=== PATIENT | female | born 1945 | race Caucasian/White ===

== ENCOUNTER 2017-12-13 18:45 | Emergency (ER) | payer MEDICARE, OTHER ==
--- NOTE | 2017-12-13 19:53 | RAD ---
3 VIEWS LEFT FOOT: Date: 12/13/17 HISTORY: Diabetic foot ulcer to lateral left foot. FINDINGS: There is subcutaneous soft tissue swelling adjacent to the metacarpophalangeal joint of the left smal l toe. No underlying osseous destruction is seen to suggest osteomyelitis based on this examination. There is irregularity of the soft tissues in this region, likely related to patient's wound/ulceratio n. There is diffuse osteopenia. Degenerative changes are seen involving the tarsal bones and tarsometata rsal joints. There is metatarsus prima varus and hallux valgus. Mild osteoarthritis seen first metata rsophalangeal joint. There is diffuse osteopenia noted. IMPRESSION: 1. Soft tissue swelling and irregularity just lateral to the metatarsophalangeal joint of the small toe, likely related to patient's known wound. There is no underlying osseous destruction to suggest o steomyelitis based on radiographic evaluation. However, if there is clinical concern for osteomyeliti s, MRI is suggested for further evaluation. 2. Degenerative changes and osteopenia. POS: [facility]
== END 2017-12-13 20:16 | disposition home or self-care (01) ==
LOC: SCSER 18:45
DX: L84 Corns and callosities (principal); E03.9 Hypothyroidism, unspecified; E11.9 Type 2 diabetes mellitus without complications; Z79.899 Other long term (current) drug therapy; Z79.82 Long term (current) use of aspirin; Z79.84 Long term (current) use of oral hypoglycemic drugs

== ENCOUNTER 2017-12-22 10:50 | Outpatient (CLI) | payer MEDICARE, OTHER | END 2017-12-22 10:51 | disposition home or self-care (01) | LOC: BICMAMMO 10:50 | PROVIDERS: ATTEND Specialist | DX: Z12.31 Encounter for screening mammogram for malignant neoplasm of breast (principal) | CPT/HCPCS: 77063; 77067 ==

== ENCOUNTER 2018-01-04 10:11 | Outpatient (CLI) | payer MEDICARE, OTHER ==
[2018-01-04] MEDS ORDERED: Sodium Chloride 0.9% 15 ML NEB ONE (14:57)
--- NOTE | 2018-01-04 22:58 | HP ---
DATE OF SERVICE: 01/04/2018 HISTORY OF PRESENT ILLNESS: Ms. Geneva Damico is a very pleasant 72-year-old who presents to the [facility] for evaluation of a wound of the plantar surface of the left lateral forefoot. The patien t states that approximately 1 year ago, she was seen by Dr. Lalo Huertas for a "corn" of the plantar surface of the left lateral forefoot. The patient states that she was placed on prescription medica tions with no improvement of the lesion of her left foot. The patient states that 2 weeks ago becaus e of pain associated with the lesion of the plantar surface of the left lateral forefoot, she was see n in the [facility] Emergency Department at a followup visit with Dr. Walters of Orthopedic Surgery, the wound of her left foot was debrided. At this time, the patient was referred to the [facility] for further evaluation and treatment. The patient states she has been cleansing the wound o f her left foot with hydrogen peroxide. She states that she then applies Triple Antibiotic Ointment to the wound followed by a Band-Aid. She states that her left foot wound has markedly improved in it s appearance since debridement by Dr. Walters. PAST MEDICAL HISTORY: 1. Arthritis. 2. Hypothyroidism. 3. Restless leg syndrome. 4. Osteoporosis. 5. Gastroesophageal reflux disease. 6. Diabetes mellitus type 2. PAST SURGICAL HISTORY: 1. x2. 2. Ovarian surgery. 3. Breast surgery x4 followed by bilateral partial mastectomy with breast implants. 4. Breast implant revision. 5. No surgery x2. 6. Cholecystectomy. 7. Hysterectomy. 8. I and D of abscess of right forearm. 9. Laminectomy L4-S1 in 02/03. 10. Tonsillectomy. MEDICATIONS: 1. Januvia. 2. Levothyroxine. 3. Metformin. 4. Ropinirole. 5. Gabapentin. 6. Simvastatin. 7. Invokana. 8. Vitamin D3. 9. Aspirin 81 mg. ALLERGIES: HYDROCODONE, LATEX. SOCIAL HISTORY: Negative for tobacco or EtOH use. FAMILY HISTORY: Significant for diabetes mellitus. The patient states that her mother was diagnosed with diabetes mellitus. REVIEW OF SYSTEMS: The patient states that she also receives Prolia injections every 6 months. PHYSICAL EXAMINATION: VITAL SIGNS: Temperature 97.7, pulse 83, respirations 19, blood pressure 128/64. Accu-Chek 200. GENERAL: A 72-year-old female sitting on table in examination room, in no acute distress. HEENT: Normocephalic, atraumatic. NECK: No nuchal rigidity. CHEST: Clear to auscultation. CARDIOVASCULAR: Regular rate and rhythm. ABDOMEN: Soft. EXTREMITIES: No open wound of the left lateral plantar forefoot is present. Callus is present over the plantar surface of the left lateral forefoot. No cellulitis of the left foot is present. No mac eration of the skin of the left foot is present. No significant edema of the left foot is present on exam today. NEUROLOGIC: Grossly nonfocal. ASSESSMENT AND PLAN: 1. Callus of the plantar surface of left lateral forefoot. The patient has been reassured that no o pen wound is present. The patient states she has a followup appointment with Dr. Walters tomorrow. Th e patient will return to the [facility] Center as needed after her evaluation by Orthopedic Surgery. The patient understands and is in agreement with the preceding treatment plan. 2. Arthritis. 3. Hypothyroidism. 4. Restless leg syndrome. 5. Osteoporosis. 6. Gastroesophageal reflux disease. 7. Diabetes mellitus type 2. The patient's Accu-Chek in clinic today is 200.
== END 2018-01-04 10:12 | disposition home or self-care (01) ==
LOC: WCC 10:11
PROVIDERS: ATTEND Family Medicine
DX: L84 Corns and callosities (principal); E11.9 Type 2 diabetes mellitus without complications; E03.9 Hypothyroidism, unspecified; M19.90 Unspecified osteoarthritis, unspecified site; M81.0 Age-related osteoporosis without current pathological fracture; K21.9 Gastro-esophageal reflux disease without esophagitis; G25.81 Restless legs syndrome
CPT/HCPCS: 97139; 97602; G0463; 99204; A4218

== ENCOUNTER 2018-09-24 21:53 | Emergency (ER) | payer MEDICARE ==
[2018-09-24 23:14] LABS: #Eosinphils 0.2 thou/uL (0.0-0.7); #Lymphocytes 1.2 thou/uL (1.20-3.40); #Monocytes 0.6 thou/uL (0.11-0.59); #Neutrophils 7.9 thou/uL (1.40-6.50); %Basophils 0.4 % (0.0-1.0); %Eosinophils 1.5 % (0.0-10.0); %Lymphocytes 12.4 % (21.0-51.0); %Monocytes 5.9 % (0.0-10.0); %Neutrophils 79.8 % (42.0-75.0); Hemoglobin 14.3 g/dL (12.0-16.0); Mean Corpuscular HGB CONC 34.1 g/dL (32.0-36.0); Mean Corpuscular Hemoglobin 31.7 pg (27.0-31.0); Mean Corpuscular Volume 92.9 fL (78.0-98.0); Mean Platelet Volume 8.6 fL (7.4-10.4); Platelet Count 207 thou/uL (130-400); RBC Distribution Width 11.2 % (11.5-14.5); White Blood Cell (WBC) Count 9.9 thou/uL (4.8-10.8)
[2018-09-24 23:35] LABS: ALT (SGPT) 13 U/L (8-55); AST (SGOT) 13 U/L (5-34); Albumin 3.9 g/dL (3.4-4.8); Alkaline Phosphatase 157 U/L (40-150); Anion Gap 14 mmol/L (10-20); BUN (Urea Nitrogen) 19 mg/dL (9.8-20.1); Bilirubin, Total 0.5 mg/dL (0.2-1.2); Calc. Creatinine Clearance 0 mL/min (70-130); Calcium 9.5 mg/dL (7.8-10.44); Carbon Dioxide 25 mmol/L (23-31); Chloride 99 mmol/L (98-107); Estimated GFR-MDRD 54; Globulin 3.4 g/dL (2.4-3.5); Glucose 497 mg/dL (83-110); Potassium 4.4 mmol/L (3.5-5.1); Protein, Total 7.3 g/dL (6.0-8.3); Sodium 134 mmol/L (136-145)
[2018-09-24] MEDS ORDERED: Morphine 4 MG/ML VIAL ONE (23:37)
[2018-09-24] MEDS ORDERED: Ondansetron PF 4 MG/2 ML Vial ONE (23:38)
[2018-09-24] MEDS ORDERED: Piperacillin/Tazobactam 4.5 GM VIAL ONE (23:38)
[2018-09-24] MEDS ORDERED: Clindamycin/D5W 900 mg/50 ml Premix Bag ONE (23:59)
[2018-09-24] MEDS ORDERED: Nystatin Cream 15 GM TUBE TOP PRN (23:59)
== END 2018-09-25 02:24 | disposition home or self-care (01) ==
LOC: ERS 21:53
DX: N76.0 Acute vaginitis (principal); N76.2 Acute vulvitis; E11.9 Type 2 diabetes mellitus without complications; M19.90 Unspecified osteoarthritis, unspecified site; Z79.82 Long term (current) use of aspirin; Z79.899 Other long term (current) drug therapy
CPT/HCPCS: 36415; 80053; 83605; 85025; 87040; 87070; 87077; 87186; 87205; 87480; 87510; 87660; 96365; 96366; 96367; 96368; 96375; J2270; J2405; J2543; J3370; J3490

== ENCOUNTER 2018-12-20 14:16 | Outpatient (CLI) | payer MEDICARE ==
--- NOTE | 2018-12-20 15:09 | BD ---
FEXAM: DEXA bone density examination HISTORY: 73-year-old postmenopausal female for screening COMPARISON: DEXA 2014 FINDINGS: L1--bone mineral density 0.967 g/sq cm; T score -0.2 L2--bone mineral density 0.914 g/sq cm; T score -1.0 L3--bone mineral density 1.087 g/sq cm; T score 0.0 L4--bone mineral density 1.017 g/sq cm; T score -0.4 Total L1-L4--bone mineral density 1.001 g/sq cm; T score -0.4 Left femoral neck--bone mineral density0.64; T score 0.9 Total proximal left femur--bone mineral density 0.765; T score 1.5 IMPRESSION: Osteopenia of the left femoral neck and total left hip. Normal bone mineral density of th e lumbar spine. There is statistically significant decrease in bone mineral density from the comparis on examination of the lumbar spine, and femoral neck.
== END 2018-12-20 14:17 | disposition home or self-care (01) ==
LOC: BICMAMMO 14:16
PROVIDERS: ATTEND Internal Medicine Rheumatology
DX: M81.0 Age-related osteoporosis without current pathological fracture (principal); M85.852 Other specified disorders of bone density and structure, left thigh
CPT/HCPCS: 77080

== ENCOUNTER 2019-02-08 14:07 | Outpatient (CLI) | payer MEDICARE ==
--- NOTE | 2019-02-08 15:20 | RAD ---
FOUR VIEWS CERVICAL SPINE: 02/08/19 HISTORY: Cervical radiculopathy with symptoms on the right for one month. Radicular arm pain on the right. COMPARISON: Study in 2006. FINDINGS: C1 to C7 is seen on the lateral projection. The C7 vertebral body is obscured and subluxation of the cervicothoracic junction would be difficult to exclude on this exam. Degenerative changes are seen i n the lower cervical spine which have progressed when compared to the prior study with narrowing of t he intervertebral disc spaces and end plate degenerative changes at C5-6 and C6-7 levels. There is tr silvano anterolisthesis of C4 on C5 and C5 on C6 which is stable compared to the prior exam and likely re lated to the facet degenerative changes. Vertebral body heights are within normal limits and no frac ture or subluxation seen from C1 to C7. Prevertebral soft tissues are within normal limits. Vascular calcifications overlie the right neck. Vascular calcification seen in the aortic arch. IMPRESSION: Degenerative changes in the cervical spine with trace anterolisthesis of C4 on C5 and C5 on C6. Cerv icothoracic junction is not well visualized on this exam. POS: [facility]
== END 2019-02-08 14:08 | disposition home or self-care (01) ==
LOC: BICRAD 14:07
PROVIDERS: ATTEND Specialist
DX: M47.22 Other spondylosis with radiculopathy, cervical region (principal)
CPT/HCPCS: 72040

== ENCOUNTER 2019-06-20 14:22 | Inpatient (IN) | payer MEDICARE ==
[2019-06-20 15:03] LABS: #Eosinphils 0.2 thou/uL (0.0-0.7); #Lymphocytes 1.3 thou/uL (1.20-3.40); #Monocytes 0.5 thou/uL (0.11-0.59); #Neutrophils 5.2 thou/uL (1.40-6.50); %Basophils 0.5 % (0.0-1.0); %Eosinophils 2.7 % (0.0-10.0); %Lymphocytes 18.5 % (21.0-51.0); %Monocytes 6.4 % (0.0-10.0); Hemoglobin 14.3 g/dL (12.0-16.0); Mean Corpuscular HGB CONC 34.2 g/dL (32.0-36.0); Mean Corpuscular Hemoglobin 32.2 pg (27.0-31.0); Mean Corpuscular Volume 94.2 fL (78.0-98.0); Mean Platelet Volume 8.1 fL (7.4-10.4); Platelet Count 249 thou/uL (130-400); RBC Distribution Width 11.3 % (11.5-14.5); Red Blood Cell (RBC) Count 4.45 mill/uL (4.20-5.40); White Blood Cell (WBC) Count 7.2 thou/uL (4.8-10.8)
[2019-06-20 15:25] LABS: ALT (SGPT) 13 U/L (8-55); AST (SGOT) 17 U/L (5-34); Albumin 3.9 g/dL (3.4-4.8); Alkaline Phosphatase 137 U/L (40-110); Anion Gap 13 mmol/L (10-20); BUN (Urea Nitrogen) 19 mg/dL (9.8-20.1); Bilirubin, Total 0.3 mg/dL (0.2-1.2); Calc. Creatinine Clearance 0 mL/min (70-130); Calcium 9.2 mg/dL (7.8-10.44); Carbon Dioxide 23 mmol/L (23-31); Chloride 102 mmol/L (98-107); Estimated GFR-MDRD 60; Globulin 3.1 g/dL (2.4-3.5); Glucose 439 mg/dL (83-110); Potassium 4.2 mmol/L (3.5-5.1); Sodium 134 mmol/L (136-145)
--- NOTE | 2019-06-20 15:30 | RAD ---
XR Foot Lt 3 View STANDARD: 06/20/2019 2:34 PM CLINICAL INDICATION: Foot ulcer COMPARISON: 12/13/2017 FINDINGS: Fracture:No fracture. Arthropathy:Stable degenerative change of the left foot. There is osseous demineralization. Marked soft tissue prominence of the lateral left forefoot, which has progressed. There is focal skin surface lucency and irregularity related to ulceration. No underlying radiopaque foreign body is seen IMPRESSION: Marked, progressive soft tissue thickening of the lateral left forefoot with overlying skin ulceratio n. No acute osseous abnormality is seen.
[2019-06-20] MEDS ORDERED: Insulin Regular 300 UNITS/3 ML VIAL ONE (15:51)
[2019-06-20] MEDS ORDERED: Clindamycin/D5W 600 mg/50 ml Premix Bag ONE (17:18)
[2019-06-20] MEDS ORDERED: Dextrose 5% in Water 1,000 ML IV PRN (18:05)
[2019-06-20] MEDS ORDERED: HumaLOG 300 UNITS/3 ML VIAL SC PRN (18:05)
[2019-06-20] MEDS ORDERED: Dextrose 50% Abboject 50 ML SYRINGE IVP PRN (18:05)
[2019-06-20 18:07] LABS: Bilirubin Negative (Negative); Blood, Urine Negative (Negative); Clarity Clear (Clear); Glucose, Urine (Dipstick) Greater than 1000 mg/dL (Negative); Leukocyte Negative Leu/uL (Negative); Nitrite Negative (Negative); Protein, Urine (Dipstick) Negative (Neg-Trace); Urobilinogen Normal mg/dL (Less than 2)
[2019-06-20 18:25] VITALS: BMI 22.1
[2019-06-20] MEDS ORDERED: Vancomycin HCl 1.5 GM in Sodium Chloride 0.9% 250 ML 300 ML IVPB SCH (21:00)
[2019-06-20] MEDS: Cefepime 2 GM in Sodium Chloride 0.9% 100 ML IVPB SCH (21:12)
[2019-06-20] MEDS ORDERED: Atorvastatin Calcium 20 MG TAB PO SCH (23:00)
[2019-06-20] MEDS ORDERED: Melatonin 3 MG TAB PO SCH (23:00)
[2019-06-20] MEDS ORDERED: rOPINIRole HCl 0.5 MG TAB PO SCH (23:00)
[2019-06-20] MEDS ORDERED: Gabapentin 300 MG CAP PO SCH (23:00)
[2019-06-20] MEDS: Sodium Chloride 0.9% 1,000 ML IV SCH (23:05)
[2019-06-20] MEDS ORDERED: Acetaminophen 325 MG TAB PO PRN (23:27)
[2019-06-20] MEDS ORDERED: Acetaminophen/Codeine 30-300mg Tablet PO PRN ×2 (23:27→23:28)
[2019-06-20] MEDS ORDERED: Calcium Carbonate 500 MG ChewTAB PO PRN (23:29)
[2019-06-20] MEDS ORDERED: Famotidine 20 MG TAB PO PRN (23:29)
--- NOTE | 2019-06-21 01:35 | CON ---
DATE OF CONSULTATION: HISTORY OF PRESENT ILLNESS: Geneva Damico is a 73-year-old female with chronic bunion over her left foot metatarsophalangeal joint, fifth toe. She developed an infection. Dr. Huertas tried to send her to Dr. Green, but she could not get into see him. The patient is insulin-dependent diabetic. She has palpable pedal pulses. X-ray of the foot revealed soft tissue swelling. Bedside evaluation revealed palpable posterior tibial pulse. Chronic venous stasis changes. She has a bunion type finding with a chronically open wound on lateral left foot overlying the fifth metatarsophalangeal joint. A Q-tip placed extends into the bone. She has blistering of the skin with purulence beneath. ALLERGIES: CLARITHROMYCIN AND HYDROCODONE. SOCIAL HISTORY: Tobacco, none. Alcohol, none. MEDICATIONS: Tramadol, Januvia, Requip, metformin, Ambien, Actos, Synthroid, levothyroxine, Lantus insulin, Osteo Bi-Flex, gabapentin, famotidine, atorvastatin, calcium, and Tylenol No. 3. PAST SURGICAL HISTORY: Laminectomy by Dr. Payton resolving her back pain, , hysterectomy, tonsillectomy and multiple breast biopsies. She is up to date on colonoscopies. PAST MEDICAL HISTORY: Diabetes mellitus, insulin dependent. REVIEW OF SYSTEMS: Noncontributory. PHYSICAL EXAMINATION: VITAL SIGNS: Weight 52 kg, blood pressure 150/68, pulse 98, respirations 16, temperature 98.1 degrees. HEENT: Unremarkable. LUNGS: Clear to auscultation. CARDIAC: Regular rate and rhythm without murmur or gallop. ABDOMEN: Soft and nontender. EXTREMITIES: Palpable femoral, popliteal, posterior tibial pulses. Chronic venous stasis changes, left foot. Cellulitis over the dorsum of the foot laterally up to the mid foot. Blistered skin with purulent discharge. Open wound, lateral fifth metatarsophalangeal joint junction with sinus tract extending to the bone joint approximately 2.5 cm to 3 cm. LABORATORY DATA: White count 7, hemoglobin 14. Sodium 134, glucose . ASSESSMENT AND PLAN: Diabetic infection, left foot with osteomyelitis and deep infection. We would recommend amputation of left fifth toe and metatarsal. Risks of infection, bleeding, reoperation, healing by secondary intention discussed. Wound VAC application discussed. Job ID: [id number]
--- NOTE | 2019-06-21 02:43 | HP ---
CHIEF COMPLAINT: Cellulitis of her left foot with hyperglycemia and diabetes. HISTORY OF PRESENT ILLNESS: The patient is a 73-year-old female who saw Dr. Huertas in his office on 06/09 at which time, she first showed him the big, large ulceration on her foot. At that time, there was no erythema and she had necrotic deep black tissue. She was placed on clindamycin and instructed to see a pot room supervisor. This has never occurred. The patient has a history of general medical noncompliance. Then over the last several days, her foot pain began to increase along with swelling and then finally a discharge began that was very malodorous. Because the pain became so severe, she came to the emergency room on the day of admission. Denying fever, nausea, but there was extreme pain with walking and standing and she could not get relief even by elevating her foot. She has been noncompliant diabetic for years and has only recently begun to take care of her diabetes. The patient was noted in the emergency room to have a foul odor similar to what one would find with Pseudomonas as well as erythema, heat, and tenderness. Dr. Huertas was contacted for admission. PAST MEDICAL HISTORY: As mentioned is extensive for diabetes type 2, hypothyroidism, osteoarthritis, restless legs syndrome-severe. PAST SURGICAL HISTORY: Includes laminectomy, forearm and elbow surgery, appendectomy, cholecystectomy, section x2, hysterectomy, and tonsillectomy. She has also had a partial mastectomy for nodules in her breast. Dyslipidemia. PSYCHIATRIC HISTORY: Negative. SOCIAL HISTORY: She is . Denies alcohol or drug use and has never smoked. She lives at home with her . ALLERGIES: THE PATIENT IS ALLERGIC TO CLARITHROMYCIN, HYDROCODONE, AND SPORANOX. MEDICATIONS ON ADMISSION: Include; 1. Aspirin 81 mg daily. 2. Gabapentin 300 mg one in the morning, two at bedtime. 3. Synthroid 112 mcg daily. 4. Ropinirole 0.5 mg at bedtime. 5. Atorvastatin 40 mg at bedtime. 6. She also takes Invokana 300 mg daily. 7. Januvia 100 mg daily. 8. Actos 45 mg daily. 9. Topical nystatin in her intertriginous skin areas. 10. Tramadol 50 mg q.6 hours p.r.n. pain. REVIEW OF SYSTEMS: CONSTITUTIONAL: Negative constitutionally for fever, chills , or malaise. HEENT: Negative for discharge or drainage from eyes, ears, nose, or throat. CHEST: Denies shortness of breath or coughing. CARDIOVASCULAR: Denies palpitations or chest pain. GI: Denies nausea, vomiting, or diarrhea. : Denies dysuria or blood in urine or stool. MUSCULOSKELETAL: Denies any major joint or limb pain except in her left foot as reason for admission. SKIN: Shows cellulitis in the left foot with erythema, heat, open ulcerated wound with necrotic tissue noted. NEUROLOGIC: Denies any areas of hypesthesia, anesthesia, or headaches. PHYSICAL EXAMINATION: At the time of admission, VITAL SIGNS: Blood pressure is 150/68, pulse 98, respirations 16, temperature 98.1 with pain at 5/10 scale and O2 saturation 96% on room air. GENERAL: This is a well-developed, well-nourished, female, alert, oriented, cooperative. HEENT: Normocephalic, atraumatic. Pupils are equal, round, and reactive to light. Extraocular muscles are intact. Arcus senilis bilaterally. TMs, nares, and pharynx are clear. NECK: Supple. Trachea is midline. CHEST: Clear to auscultation. BREASTS: Deferred. HEART: Regular rate and rhythm without murmur. ABDOMEN: Soft without organomegaly. : Deferred. EXTREMITIES: Without clubbing, cyanosis, or edema. Right lower extremity with a large ulceration on the bottom of the foot with surrounding erythema, swelling with malodorous discharge. NEUROLOGIC: Cranial nerves are intact. Gait, cerebellar function untested at this time. Sensory exam is intact. Mental status is baseline and nonfocal. LABORATORY DATA: On admission show WBC at 7.2, hemoglobin 14.3, hematocrit 41.9 with platelets at 249. Glucose on admission was 439 with sodium 134, potassium 4.2, chloride 102, CO2 was 23, BUN 19, creatinine 0.92 with a lactic acid of 1.0. Liver functions unremarkable except for alkaline phosphatase of 137. Urinalysis showed greater than 1000 glucose with trace ketones. The foot x-ray shows marked progressive soft tissue thickening of the lateral left forefoot with overlying skin ulceration. No osseous deformity is noted. ASSESSMENT: 1. Left foot cellulitis with diabetic ulceration and possible early gangrene. 2. Type 2 diabetes with history of noncompliance. 3. Hypothyroidism. 4. Restless legs syndrome, severe. PLAN: Plan will be culturing the wound, IV antibiotics, and surgical consultation for probable debridement in the operating room. Serial re-evaluation with blood sugars have been checked before meals and at bedtime and sliding scale insulin to help control the glucose. Job ID: [id number] MTDD
[2019-06-21] MEDS: Levothyroxine Sodium 112 MCG TAB PO SCH (05:48)
[2019-06-21 06:32] LABS: #Eosinphils 0.3 thou/uL (0.0-0.7); #Lymphocytes 1.9 thou/uL (1.20-3.40); #Monocytes 0.6 thou/uL (0.11-0.59); #Neutrophils 3.8 thou/uL (1.40-6.50); %Basophils 0.6 % (0.0-1.0); %Eosinophils 4.7 % (0.0-10.0); %Lymphocytes 28.2 % (21.0-51.0); %Monocytes 9.5 % (0.0-10.0); Hemoglobin 13.9 g/dL (12.0-16.0); Mean Corpuscular HGB CONC 33.8 g/dL (32.0-36.0); Mean Corpuscular Hemoglobin 31.5 pg (27.0-31.0); Mean Corpuscular Volume 93.1 fL (78.0-98.0); Mean Platelet Volume 8.3 fL (7.4-10.4); Platelet Count 243 thou/uL (130-400); RBC Distribution Width 11.4 % (11.5-14.5); Red Blood Cell (RBC) Count 4.42 mill/uL (4.20-5.40); White Blood Cell (WBC) Count 6.6 thou/uL (4.8-10.8)
[2019-06-21 07:00] LABS: Anion Gap 12 mmol/L (10-20); BUN (Urea Nitrogen) 17 mg/dL (9.8-20.1); Calc. Creatinine Clearance 59 mL/min (70-130); Calcium 9.2 mg/dL (7.8-10.44); Carbon Dioxide 23 mmol/L (23-31); Cardiac Risk 2.6 (Less than 4.5); Chloride 106 mmol/L (98-107); Cholesterol 143 mg/dl (< 200 Desired); Estimated GFR-MDRD 79; Glucose 197 mg/dL (83-110); HDL Cholesterol 54 mg/dL (>60 Neg Risk); LDL Cholesterol, Calculated 72 mg/dL; Potassium 3.8 mmol/L (3.5-5.1); Sodium 137 mmol/L (136-145); Triglycerides 83 mg/dL (Less than 150)
[2019-06-21] MEDS ORDERED: Sodium Chloride 0.9% 1,000 ML IV SCH (08:00)
[2019-06-21] MEDS ORDERED: Fentanyl 100 MCG/2 ML VIAL ONE (08:37)
[2019-06-21] MEDS ORDERED: Acetaminophen 500 MG TAB PO PRN (08:43)
[2019-06-21] MEDS ORDERED: Famotidine 20 MG TAB PO SCH (09:00)
[2019-06-21] MEDS ORDERED: Meperidine HCl/PF 25 MG/ML VIAL SLOW IVP PRN (09:02)
[2019-06-21] MEDS ORDERED: Promethazine HCl 25 MG/ML VIAL SLOW IVP PRN (09:02)
[2019-06-21] MEDS ORDERED: Ondansetron HCl/PF 4 MG/2 ML Vial IVP PRN (09:02)
[2019-06-21] MEDS ORDERED: Ketorolac Tromethamine 30 MG/ML VIAL IVP PRN (09:02)
[2019-06-21] MEDS ORDERED: HYDROmorphone 2 MG/ML VIAL SLOW IVP PRN (09:02)
[2019-06-21] MEDS ORDERED: Promethazine HCl 25 MG/ML VIAL IM PRN (09:02)
[2019-06-21] MEDS: Cyanocobalamin (Vitamin B-12) 1,000 MCG TAB PO SCH (10:01)
[2019-06-21] MEDS: Aspirin 81 mg Enteric Coated Tablet PO SCH (10:02)
[2019-06-21] MEDS: Calcium Carbonate 500 MG ChewTAB PO SCH ×2 (10:02→10:11)
[2019-06-21] MEDS: Gabapentin 300 MG CAP PO SCH ×2 (10:02→20:52)
[2019-06-21] MEDS: Cefepime 2 GM in Sodium Chloride 0.9% 100 ML IVPB SCH ×2 (10:03→20:57)
[2019-06-21] MEDS: Sodium Chloride 0.9% 1,000 ML IV SCH ×3 (10:04→21:01)
[2019-06-21] MEDS: Polyethylene Glycol 3350 17 GM Packet PO SCH (10:04)
[2019-06-21] MEDS: traMADol HCl 50 MG TAB PO PRN (10:36)
--- NOTE | 2019-06-21 15:37 | OP ---
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 POSTOPERATIVE DIAGNOSIS: Diabetic left foot infection with chronic neuropathic ulcer extending into the fifth metatarsophalangeal joint. PROCEDURE PERFORMED: Amputation of left fifth toe and metatarsal, wound left open for healing by secondary intention. Wound care team to place wound VAC. No palpable posterior tibial pulse. DESCRIPTION OF PROCEDURE: The patient was taken to the operating room, where under ankle block and intravenous sedation, left lower extremity was prepared with ChloraPrep and draped in routine fashion. Incision was made for amputation of left fifth toe and metatarsal while excising the callus tissue lateral plantar left foot near the metatarsophalangeal joint of the fifth toe. This was excised, metatarsal transected with a bone cutter, and resecting it proximally with rongeurs. Wound was irrigated. Hemostasis gained with the cautery. Connective tissue debrided. Wound Care Team arrived to place a wound VAC. Job ID: [id number]
[2019-06-21] MEDS: Vancomycin HCl 750 MG in Sodium Chloride 0.9% 250 ML 250 ML IVPB SCH (17:39)
[2019-06-21] MEDS ORDERED: Ondansetron ODT 8 MG TAB PO PRN (18:39)
[2019-06-21] MEDS: Insulin Glargine 15 UNITS in Pre-Filled Syringe 1 EACH SC SCH (20:51)
[2019-06-21] MEDS: Atorvastatin Calcium 20 MG TAB PO SCH (20:52)
[2019-06-21] MEDS: Melatonin 3 MG TAB PO SCH (20:52)
[2019-06-21] MEDS: rOPINIRole HCl 0.5 MG TAB PO SCH (20:52)
[2019-06-21] MEDS ORDERED: Cefepime 2 GM VIAL ONE (20:57)
[2019-06-22] MEDS: Sodium Chloride 0.9% 1,000 ML IV SCH ×2 (06:04→17:59)
[2019-06-22] MEDS: Levothyroxine Sodium 112 MCG TAB PO SCH (06:05)
[2019-06-22] MEDS: JARDIANCE 25 MG PO SCH (06:05)
[2019-06-22 06:26] LABS: #Eosinphils 0.3 thou/uL (0.0-0.7); #Lymphocytes 1.7 thou/uL (1.20-3.40); #Monocytes 0.5 thou/uL (0.11-0.59); #Neutrophils 3.6 thou/uL (1.40-6.50); %Basophils 0.5 % (0.0-1.0); %Eosinophils 5.3 % (0.0-10.0); %Lymphocytes 28.1 % (21.0-51.0); %Monocytes 7.5 % (0.0-10.0); %Neutrophils 58.6 % (42.0-75.0); Hemoglobin 13.1 g/dL (12.0-16.0); Mean Corpuscular HGB CONC 34.1 g/dL (32.0-36.0); Mean Corpuscular Hemoglobin 32.2 pg (27.0-31.0); Mean Corpuscular Volume 94.5 fL (78.0-98.0); Platelet Count 235 thou/uL (130-400); RBC Distribution Width 11.4 % (11.5-14.5); Red Blood Cell (RBC) Count 4.07 mill/uL (4.20-5.40); White Blood Cell (WBC) Count 6.1 thou/uL (4.8-10.8)
[2019-06-22 07:04] LABS: Anion Gap 12 mmol/L (10-20); BUN (Urea Nitrogen) 15 mg/dL (9.8-20.1); Calc. Creatinine Clearance 70 mL/min (70-130); Calcium 8.7 mg/dL (7.8-10.44); Carbon Dioxide 23 mmol/L (23-31); Chloride 109 mmol/L (98-107); Estimated GFR-MDRD Greater than 90; Glucose 94 mg/dL (83-110); Potassium 3.7 mmol/L (3.5-5.1); Sodium 140 mmol/L (136-145)
[2019-06-22] MEDS ORDERED: Zolpidem Tartrate 5 MG TAB PO PRN (08:15)
[2019-06-22] MEDS: Cyanocobalamin (Vitamin B-12) 1,000 MCG TAB PO SCH (09:14)
[2019-06-22] MEDS: Cefepime 2 GM in Sodium Chloride 0.9% 100 ML IVPB SCH ×2 (09:14→20:51)
[2019-06-22] MEDS: Aspirin 81 mg Enteric Coated Tablet PO SCH (09:14)
[2019-06-22] MEDS: Polyethylene Glycol 3350 17 GM Packet PO SCH (09:15)
[2019-06-22] MEDS: Calcium Carbonate 500 MG ChewTAB PO SCH (09:15)
[2019-06-22] MEDS: Gabapentin 300 MG CAP PO SCH ×2 (09:15→20:55)
[2019-06-22] MEDS: HumaLOG 300 UNITS/3 ML VIAL SC PRN ×2 (17:54→21:07)
[2019-06-22 18:04] LABS: Vancomycin, Trough 2.8 ug/mL
[2019-06-22] MEDS: Vancomycin HCl 1 GM in Premix Bag 1 BAG IVPB SCH (19:09)
[2019-06-22] MEDS: Vancomycin HCl 750 MG in Sodium Chloride 0.9% 250 ML 250 ML IVPB SCH (19:10)
--- NOTE | 2019-06-22 19:52 | EKG ---
Test Reason : Blood Pressure : / mmHG Vent. Rate : 085 BPM Atrial Rate : 085 BPM P-R Int : 134 ms QRS Dur : 076 ms QT Int : 378 ms P-R-T Axes : 057 027 048 degrees QTc Int : 449 ms Normal sinus rhythm Possible Left atrial enlargement Borderline ECG When compared with ECG of 11-APR-2016 18:12, Premature supraventricular complexes are no longer Present Confirmed by EROS SU, . SMary ([id number]) on 06/22/2019 7:51:45 PM Referred By: SHAN Confirmed By:DR. Pérez COONEY MD
[2019-06-22] MEDS: Melatonin 3 MG TAB PO SCH (20:53)
[2019-06-22] MEDS: Insulin Glargine 15 UNITS in Pre-Filled Syringe 1 EACH SC SCH (20:53)
[2019-06-22] MEDS: rOPINIRole HCl 0.5 MG TAB PO SCH (20:54)
[2019-06-22] MEDS: Atorvastatin Calcium 20 MG TAB PO SCH (20:55)
[2019-06-23] MEDS: Vancomycin HCl 1 GM in Premix Bag 1 BAG IVPB SCH (05:34)
[2019-06-23] MEDS: JARDIANCE 25 MG PO SCH (05:35)
[2019-06-23] MEDS: Levothyroxine Sodium 112 MCG TAB PO SCH (05:35)
[2019-06-23] MEDS: Sodium Chloride 0.9% 1,000 ML IV SCH (05:36)
[2019-06-23 08:06] VITALS: BP 152/81; TEMP 97.9
[2019-06-23] MEDS: Cyanocobalamin (Vitamin B-12) 1,000 MCG TAB PO SCH (08:17)
[2019-06-23] MEDS: Aspirin 81 mg Enteric Coated Tablet PO SCH (08:18)
[2019-06-23] MEDS: Polyethylene Glycol 3350 17 GM Packet PO SCH (08:19)
[2019-06-23] MEDS: Gabapentin 300 MG CAP PO SCH (08:19)
[2019-06-23] MEDS: Calcium Carbonate 500 MG ChewTAB PO SCH (08:20)
[2019-06-23] MEDS: Cefepime 2 GM in Sodium Chloride 0.9% 100 ML IVPB SCH (08:20)
[2019-06-23] MEDS: traMADol HCl 50 MG TAB PO PRN (13:41)
--- NOTE | 2019-06-23 18:15 | PRG ---
DATE OF SERVICE: 06/23/2019 Geneva Damico's foot looks good. Wound VAC was removed. She has good granulation tissue Augmentin 875 p.o. b.i.d. for 7 days. She does not have any pain. Advil [id number]. I will see her in my office in 2 to 3 weeks. She has home health arranged for outpatient VAC care to her foot. Weight bear as tolerated. Postoperative shoe when out of bed. Job ID: [id number]
[2019-06-23] MEDS: HumaLOG 300 UNITS/3 ML VIAL SC PRN (18:31)
[2019-06-23] MEDS ORDERED: Amoxicillin/Potassium Clav 875 MG TAB PO SCH (21:00)
[2019-06-23] MEDS ORDERED: Calcium Carbonate 500 MG ChewTAB PO SCH (21:00)
== END 2019-06-23 19:19 | disposition home or self-care (01) | DRG 617 ==
LOC: ERS 14:22 → T4-A 16:15
PROVIDERS: ADMIT Specialist; ATTEND Specialist
PROC: 0Y6N0ZF Detachment at Left Foot, Partial 5th Ray, Open Approach (ICD-10-PCS; principal; 2019-06-21)
DX: E11.628 Type 2 diabetes mellitus with other skin complications (principal); L03.116 Cellulitis of left lower limb; M86.9 Osteomyelitis, unspecified; E11.65 Type 2 diabetes mellitus with hyperglycemia; E03.9 Hypothyroidism, unspecified; M19.91 Primary osteoarthritis, unspecified site; G25.81 Restless legs syndrome; E78.5 Hyperlipidemia, unspecified; E11.621 Type 2 diabetes mellitus with foot ulcer; L97.529 Non-pressure chronic ulcer of other part of left foot with unspecified severity; Z88.8 Allergy status to other drugs, medicaments and biological substances; Z79.82 Long term (current) use of aspirin; E11.69 Type 2 diabetes mellitus with other specified complication
CPT/HCPCS: 36415; 36416; 80048; 80053; 80061; 80202; 81003; 83036; 83605; 85025; 87040; 87070; 87076; 87077; 87186; 87205; 88305; 88311; 93005; 93010; 96361; 96365; 96375; J0692; J1815; J1956; J3010; J3370; J3490; J7050

== ENCOUNTER 2020-12-24 20:07 | Emergency (ER) | payer MEDICARE ==
[2020-12-24] MEDS ORDERED: Acetaminophen 500 MG TAB ONE (21:53)
[2020-12-24 22:03] LABS: #Eosinphils 0.1 thou/uL (0.0-0.7); #Lymphocytes 1.5 thou/uL (1.20-3.40); #Monocytes 0.5 thou/uL (0.11-0.59); #Neutrophils 6.2 thou/uL (1.40-6.50); %Basophils 0.3 % (0.0-1.0); %Eosinophils 1.1 % (0.0-10.0); %Lymphocytes 17.7 % (21.0-51.0); %Monocytes 6.1 % (0.0-10.0); %Neutrophils 74.7 % (42.0-75.0); Hemoglobin 14.6 g/dL (12.0-16.0); Mean Corpuscular HGB CONC 32.6 g/dL (32.0-36.0); Mean Corpuscular Hemoglobin 32.3 pg (27.0-31.0); Mean Corpuscular Volume 98.8 fL (78.0-98.0); Mean Platelet Volume 7.5 fL (7.4-10.4); Platelet Count 295 thou/uL (130-400); RBC Distribution Width 12.3 % (11.5-14.5); Red Blood Cell (RBC) Count 4.52 mill/uL (4.20-5.40); White Blood Cell (WBC) Count 8.2 thou/uL (4.8-10.8)
[2020-12-24 22:25] LABS: Anion Gap 14 mmol/L (10-20); BUN (Urea Nitrogen) 16 mg/dL (9.8-20.1); CK (CPK) 79 U/L (29-168); Calc. Creatinine Clearance 0 mL/min (70-130); Calcium 9.2 mg/dL (7.8-10.44); Carbon Dioxide 26 mmol/L (23-31); Chloride 103 mmol/L (98-107); Glucose 134 mg/dL (83-110); Potassium 3.8 mmol/L (3.5-5.1); Sodium 139 mmol/L (136-145)
== END 2020-12-24 23:24 | disposition home or self-care (01) ==
LOC: ERS 20:07
DX: M19.09 Primary osteoarthritis, other specified site (principal); E11.40 Type 2 diabetes mellitus with diabetic neuropathy, unspecified; Z79.82 Long term (current) use of aspirin; Z79.899 Other long term (current) drug therapy
CPT/HCPCS: 36415; 80048; 82550; 85025

== ENCOUNTER 2020-12-25 11:40 | Outpatient (CLI) | payer MEDICARE | END 2020-12-25 11:41 | disposition home or self-care (01) | LOC: BICRAD 11:40 | PROVIDERS: ATTEND Specialist | DX: M47.26 Other spondylosis with radiculopathy, lumbar region (principal) | CPT/HCPCS: 72100 ==

== ENCOUNTER 2021-03-18 09:05 | Outpatient (CLI) | payer MEDICARE | END 2021-03-18 09:06 | disposition home or self-care (01) | LOC: TBSIIMAG 09:05 | PROVIDERS: ATTEND Neurological Surgery | DX: M47.816 Spondylosis without myelopathy or radiculopathy, lumbar region (principal); M43.16 Spondylolisthesis, lumbar region; M51.36 Other intervertebral disc degeneration, lumbar region; M48.061 Spinal stenosis, lumbar region without neurogenic claudication; M43.17 Spondylolisthesis, lumbosacral region; Z98.890 Other specified postprocedural states | CPT/HCPCS: 72100; 72148 ==

== ENCOUNTER 2021-05-15 11:50 | Outpatient (CLI) | payer MEDICARE ==
[2021-05-15 13:33] LABS: Hemoglobin 14.1 g/dL (12.0-15.5); Mean Corpuscular HGB CONC 32.7 g/dL (32.0-36.0); Mean Corpuscular Hemoglobin 30.7 pg (27.0-33.0); Mean Corpuscular Volume 93.7 fl (81.6-98.3); Platelet Count 288 10x3/uL (150-450); White Blood Cell (WBC) Count 6.2 10x3/uL (3.5-10.5)
[2021-05-15 13:44] LABS: Anion Gap 13 mmol/L (10-20); BUN (Urea Nitrogen) 16 mg/dL (9.8-20.1); Calc. Creatinine Clearance 0 mL/min (70-130); Calcium 9.9 mg/dL (7.8-10.44); Carbon Dioxide 25 mmol/L (23-31); Chloride 104 mmol/L (98-107); Glucose 277 mg/dL (83-110); Potassium 4.4 mmol/L (3.5-5.1); Sodium 138 mmol/L (136-145)
[2021-05-16 02:27] LABS: SARS-CoV-2 PCR by NAA Not Detected (NotDetected)
== END 2021-05-15 11:51 | disposition home or self-care (01) ==
LOC: LABBT 11:50
PROVIDERS: ATTEND Neurological Surgery
DX: Z01.818 Encounter for other preprocedural examination (principal); M43.16 Spondylolisthesis, lumbar region; Z20.822 Contact with and (suspected) exposure to COVID-19
CPT/HCPCS: 80048; 85027; 93005; U0003; U0005; 93010

== ENCOUNTER 2021-06-14 12:06 | Outpatient (CLI) | payer MEDICARE ==
[2021-06-14 12:39] LABS: Hemoglobin 14.1 g/dL (12.0-15.5); Mean Corpuscular HGB CONC 32.5 g/dL (32.0-36.0); Mean Corpuscular Hemoglobin 30.7 pg (27.0-33.0); Mean Corpuscular Volume 94.3 fl (81.6-98.3); Platelet Count 261 10x3/uL (150-450); RBC Distribution Width 12.9 % (11.5-14.5); White Blood Cell (WBC) Count 5.8 10x3/uL (3.5-10.5)
[2021-06-14 13:09] LABS: Anion Gap 14 mmol/L (10-20); BUN (Urea Nitrogen) 13 mg/dL (9.8-20.1); Calc. Creatinine Clearance 0 mL/min (70-130); Calcium 9.9 mg/dL (7.8-10.44); Carbon Dioxide 27 mmol/L (23-31); Chloride 105 mmol/L (98-107); Glucose 244 mg/dL (83-110); Potassium 4.5 mmol/L (3.5-5.1); Sodium 141 mmol/L (136-145)
[2021-06-15 17:40] LABS: SARS-CoV-2 PCR by NAA Not Detected (NotDetected)
== END 2021-06-14 12:07 | disposition home or self-care (01) ==
LOC: LABBT 12:06
PROVIDERS: ATTEND Neurological Surgery
DX: Z01.812 Encounter for preprocedural laboratory examination (principal); M48.062 Spinal stenosis, lumbar region with neurogenic claudication; Z20.822 Contact with and (suspected) exposure to COVID-19
CPT/HCPCS: 80048; 85027; U0003; U0005

== ENCOUNTER 2021-06-19 08:51 | Observation (INO) | payer MEDICARE ==
[2021-06-19] MEDS ORDERED: ceFAZolin 2 GM/DEX 5% 100 ML BAG ONE (09:14)
[2021-06-19] MEDS ORDERED: Fentanyl 100 MCG/2 ML VIAL ONE ×2 (09:22→11:59)
[2021-06-19] MEDS ORDERED: Phenylephrine 10 MG/ML VIAL ONE (09:22)
[2021-06-19] MEDS ORDERED: HYDROmorphone 0.5 MG/0.5 ML SYRINGE ONE (09:23)
[2021-06-19] MEDS ORDERED: Ketorolac Tromethamine 30 MG/ML VIAL ONE (10:09)
[2021-06-19] MEDS ORDERED: Rocuronium Bromide 10 MG/ML (10ML VIAL) ONE (10:09)
[2021-06-19] MEDS ORDERED: Dexamethasone 20 MG/5 ML VIAL ONE (10:09)
[2021-06-19] MEDS ORDERED: Lidocaine 1% PF 5 ML VIAL ONE (10:09)
[2021-06-19] MEDS ORDERED: Ondansetron PF 4 MG/2 ML Vial ONE (10:09)
[2021-06-19] MEDS ORDERED: Glycopyrrolate 0.2 MG/ML 5 ML SYRINGE ONE (10:09)
[2021-06-19] MEDS ORDERED: PROPOFOL 200 MG/20 ML VIAL ONE (10:09)
[2021-06-19] MEDS ORDERED: Promethazine HCl 25 MG/ML VIAL IM PRN (12:15)
[2021-06-19] MEDS ORDERED: Promethazine HCl 12.5 MG SUPP PR PRN (12:15)
[2021-06-19] MEDS ORDERED: Milk Of Magnesia 30 ML UDCUP PO PRN (12:15)
[2021-06-19] MEDS ORDERED: diphenhydrAMINE 50 MG/ML VIAL IVP PRN (12:15)
[2021-06-19] MEDS ORDERED: Morphine 2 MG/ML VIAL SLOW IVP PRN (12:15)
[2021-06-19] MEDS ORDERED: diphenhydrAMINE 25 MG CAP PO PRN (12:15)
[2021-06-19] MEDS ORDERED: Promethazine 25 MG TAB PO PRN (12:15)
[2021-06-19] MEDS ORDERED: Morphine 4 MG/ML VIAL SLOW IVP PRN (12:15)
[2021-06-19] MEDS ORDERED: Acetaminophen/Codeine 30-300mg Tablet PO PRN ×2 (12:15)
[2021-06-19] MEDS ORDERED: traMADol HCl 50 MG TAB PO PRN (12:15)
[2021-06-19] MEDS ORDERED: Mag-Al 1200 mg/1200 mg/30 ML UDCUP PO PRN (12:15)
[2021-06-19] MEDS: traMADol HCl 50 MG TAB PO PRN (13:39)
[2021-06-19] MEDS: tiZANidine HCl 4 MG TAB PO PRN (13:39)
[2021-06-19] MEDS: Sodium Chloride 0.9% 1,000 ML IV SCH (13:42)
[2021-06-19] MEDS ORDERED: CEFAZOLIN 2 GM in Premix Bag 1 BAG IVPB SCH (17:00)
[2021-06-19] MEDS ORDERED: Dextrose 5% in Water 1,000 ML IV PRN (18:45)
[2021-06-19] MEDS ORDERED: Insulin Regular 300 UNITS/3 ML VIAL SC PRN (18:45)
[2021-06-19] MEDS ORDERED: Dextrose 50% Abboject 50 ML SYRINGE IVP PRN (18:45)
[2021-06-19] MEDS ORDERED: rOPINIRole HCl 0.5 MG TAB PO SCH (21:00)
[2021-06-19] MEDS ORDERED: Zolpidem Tartrate 5 MG TAB PO SCH (21:00)
[2021-06-19] MEDS ORDERED: Atorvastatin Calcium 20 MG TAB PO SCH (21:00)
[2021-06-20] MEDS: tiZANidine HCl 4 MG TAB PO PRN (00:21)
[2021-06-20] MEDS: traMADol HCl 50 MG TAB PO PRN (00:21)
[2021-06-20] MEDS: ceFAZolin Sodium/D5W 2 GM in Premix Bag 1 BAG IVPB SCH ×2 (01:14→08:31)
[2021-06-20] MEDS: Sodium Chloride 0.9% 1,000 ML IV SCH (03:59)
[2021-06-20] MEDS ORDERED: Levothyroxine Sodium 75 MCG TAB PO SCH (06:00)
[2021-06-20 07:07] LABS: #Eosinphils 0.1 thou/uL (0.0-0.7); #Lymphocytes 1.3 thou/uL (1.20-3.40); #Monocytes 0.9 thou/uL (0.11-0.59); %Basophils 0.2 % (0.0-1.0); %Eosinophils 1.1 % (0.0-10.0); %Lymphocytes 14.1 % (21.0-51.0); %Monocytes 9.6 % (0.0-10.0); Hemoglobin 12.4 g/dL (12.0-16.0); Mean Corpuscular Hemoglobin 31.5 pg (27.0-31.0); Mean Corpuscular Volume 95.3 fL (78.0-98.0); Mean Platelet Volume 7.7 fL (7.4-10.4); Platelet Count 248 thou/uL (130-400); Red Blood Cell (RBC) Count 3.94 mill/uL (4.20-5.40); White Blood Cell (WBC) Count 9.3 thou/uL (4.8-10.8)
[2021-06-20 07:14] LABS: Hemoglobin A1c 8.1 % (4.0-6.0)
[2021-06-20 07:25] LABS: Anion Gap 10 mmol/L (10-20); BUN (Urea Nitrogen) 19 mg/dL (9.8-20.1); Calc. Creatinine Clearance 50 mL/min (70-130); Calcium 8.7 mg/dL (7.8-10.44); Carbon Dioxide 26 mmol/L (23-31); Cardiac Risk 2.8 (Less than 4.5); Chloride 105 mmol/L (98-107); Cholesterol 124 mg/dl (< 200 Desired); Glucose 140 mg/dL (83-110); HDL Cholesterol 45 mg/dL (>60 Neg Risk); LDL Cholesterol, Calculated 52 mg/dL; Sodium 137 mmol/L (136-145); Triglycerides 133 mg/dL (Less than 150)
[2021-06-20 08:11] VITALS: TEMP 98.4
[2021-06-20] MEDS ORDERED: Empagliflozin 25 MG TAB PO SCH (09:00)
[2021-06-20] MEDS ORDERED: cloNIDine 0.1 MG TAB PO SCH (09:00)
[2021-06-20 12:17] VITALS: BP 131/62
[2021-06-20 16:48] VITALS: BMI 18.2
[2021-06-20] MEDS ORDERED: ceFAZolin Sodium/D5W 2 GM in Premix Bag 1 BAG IVPB SCH (17:00)
== END 2021-06-20 13:35 | disposition home health service (06) ==
LOC: SDC 08:51 → SURG B 11:56
PROVIDERS: ADMIT Neurological Surgery; ATTEND Neurological Surgery
PROC: 01NB0ZZ Release Lumbar Nerve, Open Approach (ICD-10-PCS; principal; 2021-06-19)
DX: M48.062 Spinal stenosis, lumbar region with neurogenic claudication (principal); M51.16 Intervertebral disc disorders with radiculopathy, lumbar region; M47.26 Other spondylosis with radiculopathy, lumbar region; G25.81 Restless legs syndrome; M81.0 Age-related osteoporosis without current pathological fracture; E11.42 Type 2 diabetes mellitus with diabetic polyneuropathy; E03.9 Hypothyroidism, unspecified; E78.5 Hyperlipidemia, unspecified; I10 Essential (primary) hypertension; Z79.1 Long term (current) use of non-steroidal anti-inflammatories (NSAID); Z79.4 Long term (current) use of insulin; Z79.899 Other long term (current) drug therapy; Z88.5 Allergy status to narcotic agent; Z88.8 Allergy status to other drugs, medicaments and biological substances; Z89.422 Acquired absence of other left toe(s); Z98.890 Other specified postprocedural states
CPT/HCPCS: 63047; 63048; 76000; 80048; 80061; 82962 ×2; 83036; 84443; 85025; 96365; 96366; 97116; G0378 ×2; 36415; 36416; J1100; J1170; J1815; J1885; J2370; J2405; J2704; J3010; J3370; J7050

== ENCOUNTER 2022-04-03 15:34 | Inpatient (IN) | payer MEDICARE ==
[2022-04-03 17:04] LABS: #Eosinphils 0.1 thou/uL (0.0-0.7); #Lymphocytes 0.9 thou/uL (1.20-3.40); #Monocytes 0.4 thou/uL (0.11-0.59); %Basophils 0.2 % (0.0-1.0); %Eosinophils 0.9 % (0.0-10.0); %Lymphocytes 8.4 % (21.0-51.0); %Monocytes 4.1 % (0.0-10.0); %Neutrophils 86.4 % (42.0-75.0); Hemoglobin 14.1 g/dL (12.0-16.0); Mean Corpuscular HGB CONC 32.1 g/dL (32.0-36.0); Mean Corpuscular Hemoglobin 31.9 pg (27.0-31.0); Mean Corpuscular Volume 99.3 fL (78.0-98.0); Mean Platelet Volume 7.9 fL (7.4-10.4); Platelet Count 263 thou/uL (130-400); RBC Distribution Width 11.6 % (11.5-14.5); Red Blood Cell (RBC) Count 4.43 mill/uL (4.20-5.40); White Blood Cell (WBC) Count 10.4 thou/uL (4.8-10.8)
[2022-04-03] MEDS ORDERED: Dextrose 50% Abboject 50 ML SYRINGE SLOW IVP PRN (17:06)
[2022-04-03] MEDS ORDERED: Morphine 2 MG/ML VIAL SLOW IVP PRN ×2 (17:06→19:19)
[2022-04-03] MEDS ORDERED: hydrALAZINE 20 MG/ML VIAL SLOW IVP PRN (17:06)
[2022-04-03] MEDS ORDERED: Morphine 4 MG/ML VIAL SLOW IVP PRN (17:06)
[2022-04-03] MEDS ORDERED: Insulin Regular 300 UNITS/3 ML VIAL SC PRN ×2 (17:06)
[2022-04-03] MEDS ORDERED: Dextrose 5% in Water 1,000 ML IV PRN (17:06)
[2022-04-03] MEDS ORDERED: Promethazine HCl 25 MG/ML VIAL IM PRN (17:06)
[2022-04-03] MEDS ORDERED: traMADol HCl 50 MG TAB PO PRN (17:10)
[2022-04-03] MEDS ORDERED: Morphine 2 MG/ML VIAL ONE (17:15)
[2022-04-03] MEDS ORDERED: Cyclobenzaprine 10 MG TAB PO PRN (17:30)
[2022-04-03 17:36] LABS: ALT (SGPT) 17 U/L (8-55); AST (SGOT) 20 U/L (5-34); Albumin 4.2 g/dL (3.4-4.8); Alkaline Phosphatase 132 U/L (40-110); Anion Gap 17 mmol/L (10-20); BUN (Urea Nitrogen) 18 mg/dL (9.8-20.1); Bilirubin, Total 0.4 mg/dL (0.2-1.2); Calc. Creatinine Clearance 0 mL/min (70-130); Calcium 8.6 mg/dL (7.8-10.44); Carbon Dioxide 19 mmol/L (23-31); Chloride 105 mmol/L (98-107); Estimated GFR 85; Globulin 3.4 g/dL (2.4-3.5); Glucose 232 mg/dL (83-110); Magnesium 2.4 mg/dL (1.6-2.6); Potassium 3.8 mmol/L (3.5-5.1); Protein, Total 7.6 g/dL (5.8-8.1); Sodium 137 mmol/L (136-145)
[2022-04-03 18:36] LABS: Hemoglobin A1c 9.6 % (4.0-6.0)
[2022-04-03] MEDS ORDERED: Acetaminophen 500 MG TAB ONE (18:59)
[2022-04-03] MEDS ORDERED: hydrALAZINE 20 MG/ML VIAL ONE (18:59)
[2022-04-03] MEDS ORDERED: Ketorolac Tromethamine 30 MG/ML VIAL ONE ×2 (19:00→19:01)
[2022-04-03] MEDS ORDERED: traMADol HCl 50 MG TAB ONE (19:00)
[2022-04-03] MEDS ORDERED: CEFAZOLIN 2 GM in Sodium Chloride 0.9% 100 ML IVPB SCH (19:00)
[2022-04-03] MEDS: Ketorolac Tromethamine 30 MG/ML VIAL IVP SCH ×2 (19:15→23:48)
[2022-04-03] MEDS: Acetaminophen 500 MG TAB PO SCH ×2 (19:15→23:44)
[2022-04-03] MEDS: traMADol HCl 50 MG TAB PO SCH ×2 (19:16→23:46)
[2022-04-03] MEDS ORDERED: Famotidine/PF 20 mg/2ml Vial SLOW IVP SCH (21:00)
[2022-04-03] MEDS ORDERED: rOPINIRole HCl 0.5 MG TAB PO SCH (21:30)
[2022-04-03] MEDS ORDERED: Pregabalin 50 MG CAP PO SCH (21:30)
[2022-04-03] MEDS: Senokot S 8.6-50 MG TAB PO SCH (23:45)
[2022-04-03] MEDS: Famotidine 20 MG TAB PO SCH (23:45)
[2022-04-04] MEDS: Sodium Chloride 0.9% 1,000 ML IV SCH ×2 (00:51→10:13)
[2022-04-04 02:47] VITALS: BMI 22.0
[2022-04-04 02:50] LABS: SARS-CoV-2 NAA Rapid Test Not Detected (NotDetected)
[2022-04-04 02:54] LABS: Bacteria/HPF None Seen HPF (None Seen); Bilirubin Negative (Negative); Blood, Urine 3+ (Negative); Clarity Clear (Clear); Glucose, Urine (Dipstick) Greater than 1000 mg/dL (Negative); Ketone, Urine 40 mg/dL (Negative); Leukocyte Negative Leu/uL (Negative); Nitrite Negative (Negative); Protein, Urine (Dipstick) 20 mg/dL (Neg-Trace); RBC/HPF 21-50 HPF (0-3); Specific Gravity, Urine 1.034 (1.002-1.036); Squamous Epithelial None Seen HPF (0-3); Urobilinogen Normal mg/dL (Less than 2)
[2022-04-04 05:45] LABS: #Eosinphils 0.1 thou/uL (0.0-0.7); #Lymphocytes 0.7 thou/uL (1.20-3.40); #Monocytes 0.6 thou/uL (0.11-0.59); #Neutrophils 7.8 thou/uL (1.40-6.50); %Eosinophils 0.7 % (0.0-10.0); %Lymphocytes 8.1 % (21.0-51.0); %Monocytes 5.9 % (0.0-10.0); %Neutrophils 85.3 % (42.0-75.0); Mean Corpuscular HGB CONC 32.1 g/dL (32.0-36.0); Mean Corpuscular Volume 99.5 fL (78.0-98.0); Mean Platelet Volume 8.3 fL (7.4-10.4); Platelet Count 230 thou/uL (130-400); RBC Distribution Width 11.7 % (11.5-14.5); Red Blood Cell (RBC) Count 4.07 mill/uL (4.20-5.40); White Blood Cell (WBC) Count 9.2 thou/uL (4.8-10.8)
[2022-04-04] MEDS: Ketorolac Tromethamine 30 MG/ML VIAL IVP SCH (05:47)
[2022-04-04] MEDS: Acetaminophen 500 MG TAB PO SCH ×4 (05:48→21:27)
[2022-04-04] MEDS: traMADol HCl 50 MG TAB PO SCH ×3 (05:48→17:35)
[2022-04-04 05:53] LABS: Anion Gap 16 mmol/L (10-20); BUN (Urea Nitrogen) 26 mg/dL (9.8-20.1); Calc. Creatinine Clearance 39 mL/min (70-130); Calcium 8.1 mg/dL (7.8-10.44); Carbon Dioxide 19 mmol/L (23-31); Chloride 106 mmol/L (98-107); Estimated GFR 55; Glucose 288 mg/dL (83-110); Magnesium 2.4 mg/dL (1.6-2.6); Potassium 4.4 mmol/L (3.5-5.1); Sodium 137 mmol/L (136-145)
[2022-04-04 05:56] LABS: Phosphorus 5.5 mg/dL (2.3-4.7)
[2022-04-04] MEDS ORDERED: Insulin Regular 300 UNITS/3 ML VIAL SC PRN (07:20)
[2022-04-04] MEDS ORDERED: Sodium Chloride 0.9% 0 ML ONE (07:26)
[2022-04-04] MEDS ORDERED: CEFAZOLIN 2 GM VIAL ONE ×2 (07:26→07:32)
[2022-04-04] MEDS ORDERED: Sodium Chloride 0.9% 100 ML ONE (07:32)
[2022-04-04] MEDS ORDERED: Famotidine/PF 20 mg/2ml Vial ONE (07:46)
[2022-04-04] MEDS ORDERED: fentaNYL Citrate/PF 100 MCG/2 ML SYRINGE ONE (07:46)
[2022-04-04] MEDS ORDERED: ePHEDrine 50 MG/ML VIAL ONE (08:16)
[2022-04-04] MEDS ORDERED: Lidocaine 1% PF 5 ML VIAL ONE (08:16)
[2022-04-04] MEDS ORDERED: Ketorolac Tromethamine 30 MG/ML VIAL ONE (08:16)
[2022-04-04] MEDS ORDERED: Ondansetron PF 4 MG/2 ML Vial ONE (08:16)
[2022-04-04] MEDS ORDERED: PROPOFOL 200 MG/20 ML VIAL ONE (08:16)
[2022-04-04] MEDS ORDERED: Phenylephrine 10 MG/ML VIAL ONE (08:16)
[2022-04-04] MEDS ORDERED: Morphine Sulfate 2 MG/ML SYRINGE SLOW IVP PRN (08:40)
[2022-04-04] MEDS ORDERED: Promethazine HCl 25 MG/ML VIAL IVPB PRN (08:40)
[2022-04-04] MEDS: Polyethylene Glycol 3350 17 GM Packet PO SCH (09:50)
[2022-04-04] MEDS: Famotidine 20 MG TAB PO SCH (09:50)
[2022-04-04] MEDS: Senokot S 8.6-50 MG TAB PO SCH ×2 (09:50→21:25)
[2022-04-04] MEDS: Insulin Regular 300 UNITS/3 ML VIAL SC PRN (12:21)
[2022-04-04] MEDS ORDERED: ceFAZolin 2 GM/Dextrose 50 ML 2 GM in Premix Bag 1 BAG IVPB SCH (14:00)
[2022-04-04] MEDS: CEFAZOLIN 2 GM in Sodium Chloride 0.9% 100 ML IVPB SCH ×2 (14:08→21:25)
[2022-04-04] MEDS ORDERED: rOPINIRole HCl 0.5 MG TAB PO SCH (21:00)
[2022-04-04] MEDS ORDERED: Pregabalin 50 MG CAP PO SCH (21:00)
[2022-04-05] MEDS: traMADol HCl 50 MG TAB PO SCH ×4 (00:04→18:10)
[2022-04-05] MEDS: CEFAZOLIN 2 GM in Sodium Chloride 0.9% 100 ML IVPB SCH (05:28)
[2022-04-05] MEDS: Acetaminophen 500 MG TAB PO SCH ×3 (05:29→18:09)
[2022-04-05] MEDS: Levothyroxine Sodium 75 MCG TAB PO SCH (06:09)
[2022-04-05] MEDS: Insulin Regular 300 UNITS/3 ML VIAL SC PRN ×3 (06:40→18:10)
[2022-04-05 08:08] LABS: #Eosinphils 0.1 thou/uL (0.0-0.7); #Lymphocytes 0.5 thou/uL (1.20-3.40); #Monocytes 0.4 thou/uL (0.11-0.59); #Neutrophils 8.2 thou/uL (1.40-6.50); %Basophils 0.3 % (0.0-1.0); %Eosinophils 0.8 % (0.0-10.0); %Lymphocytes 5.6 % (21.0-51.0); %Monocytes 3.9 % (0.0-10.0); %Neutrophils 89.4 % (42.0-75.0); Hemoglobin 11.3 g/dL (12.0-16.0); Mean Corpuscular HGB CONC 32.1 g/dL (32.0-36.0); Mean Corpuscular Hemoglobin 32.6 pg (27.0-31.0); Mean Platelet Volume 8.2 fL (7.4-10.4); Platelet Count 189 thou/uL (130-400); Red Blood Cell (RBC) Count 3.45 mill/uL (4.20-5.40); White Blood Cell (WBC) Count 9.2 thou/uL (4.8-10.8)
[2022-04-05 08:27] LABS: Anion Gap 23 mmol/L (10-20); BUN (Urea Nitrogen) 36 mg/dL (9.8-20.1); Calc. Creatinine Clearance 27 mL/min (70-130); Calcium 7.3 mg/dL (7.8-10.44); Carbon Dioxide 14 mmol/L (23-31); Chloride 104 mmol/L (98-107); Estimated GFR 35; Glucose 243 mg/dL (83-110); Magnesium 2.4 mg/dL (1.6-2.6); Phosphorus 4.6 mg/dL (2.3-4.7); Potassium 4.4 mmol/L (3.5-5.1); Sodium 137 mmol/L (136-145)
[2022-04-05] MEDS: Polyethylene Glycol 3350 17 GM Packet PO SCH (08:37)
[2022-04-05] MEDS: Famotidine 20 MG TAB PO SCH (08:37)
[2022-04-05] MEDS: Aspirin 81 mg Enteric Coated Tablet PO SCH ×2 (08:37→20:42)
[2022-04-05] MEDS: Senokot S 8.6-50 MG TAB PO SCH ×2 (08:37→20:42)
[2022-04-05] MEDS ORDERED: Ondansetron PF 4 MG/2 ML Vial IVP PRN (09:30)
[2022-04-05] MEDS ORDERED: Sodium Chloride 0.9% 1,000 ML IV SCH ×2 (09:45)
[2022-04-05] MEDS: Scopolamine 1.5 mg/72 hour Patch TD SCH (09:55)
[2022-04-05] MEDS: Atorvastatin Calcium 20 MG TAB PO SCH (20:42)
[2022-04-05] MEDS: Pregabalin 50 MG CAP PO SCH (20:42)
[2022-04-05] MEDS: rOPINIRole HCl 0.5 MG TAB PO SCH (20:46)
[2022-04-06] MEDS: Acetaminophen 500 MG TAB PO SCH ×5 (00:04→23:51)
[2022-04-06] MEDS: traMADol HCl 50 MG TAB PO SCH ×3 (00:05→16:33)
[2022-04-06] MEDS: Levothyroxine Sodium 75 MCG TAB PO SCH (05:18)
[2022-04-06 06:04] LABS: #Eosinphils 0.3 thou/uL (0.0-0.7); #Lymphocytes 1.1 thou/uL (1.20-3.40); #Monocytes 0.7 thou/uL (0.11-0.59); #Neutrophils 6.8 thou/uL (1.40-6.50); %Basophils 0.2 % (0.0-1.0); %Eosinophils 3.7 % (0.0-10.0); %Lymphocytes 11.8 % (21.0-51.0); %Monocytes 7.5 % (0.0-10.0); %Neutrophils 76.7 % (42.0-75.0); Hemoglobin 11.1 g/dL (12.0-16.0); Mean Corpuscular HGB CONC 32.2 g/dL (32.0-36.0); Mean Corpuscular Hemoglobin 32.6 pg (27.0-31.0); Mean Platelet Volume 8.1 fL (7.4-10.4); Platelet Count 185 thou/uL (130-400); RBC Distribution Width 12.2 % (11.5-14.5); Red Blood Cell (RBC) Count 3.41 mill/uL (4.20-5.40); White Blood Cell (WBC) Count 8.9 thou/uL (4.8-10.8)
[2022-04-06] MEDS: Insulin Regular 300 UNITS/3 ML VIAL SC PRN ×4 (06:21→22:15)
[2022-04-06 06:26] LABS: Anion Gap 22 mmol/L (10-20); BUN (Urea Nitrogen) 48 mg/dL (9.8-20.1); Calc. Creatinine Clearance 18 mL/min (70-130); Calcium 7.3 mg/dL (7.8-10.44); Carbon Dioxide 13 mmol/L (23-31); Chloride 104 mmol/L (98-107); Estimated GFR 21; Glucose 224 mg/dL (83-110); Magnesium 2.4 mg/dL (1.6-2.6); Phosphorus 4.3 mg/dL (2.3-4.7); Potassium 4.4 mmol/L (3.5-5.1); Sodium 135 mmol/L (136-145)
[2022-04-06] MEDS ORDERED: traMADol HCl 50 MG TAB PO PRN (07:32)
[2022-04-06] MEDS: Famotidine 20 MG TAB PO SCH (10:23)
[2022-04-06] MEDS: Senokot S 8.6-50 MG TAB PO SCH ×2 (10:23→22:05)
[2022-04-06] MEDS: Empagliflozin 25 MG TAB PO SCH (10:24)
[2022-04-06] MEDS: Polyethylene Glycol 3350 17 GM Packet PO SCH (10:25)
[2022-04-06] MEDS: Heparin 5,000 UNITS/ML VIAL SC SCH ×2 (10:25→22:05)
[2022-04-06] MEDS: Sodium Bicarbonate 150 MEQ in Dextrose 5% in Water 1,000 ML IV SCH (10:36)
[2022-04-06 13:12] LABS: Bacteria/HPF None Seen HPF (None Seen); Bilirubin Negative (Negative); Blood, Urine 3+ (Negative); Clarity Clear (Clear); Glucose, Urine (Dipstick) Greater than 1000 mg/dL (Negative); Ketone, Urine 10 mg/dL (Negative); Leukocyte 250 Leu/uL (Negative); Nitrite Negative (Negative); Protein, Urine (Dipstick) 30 mg/dL (Neg-Trace); RBC/HPF 21-50 HPF (0-3); Specific Gravity, Urine 1.024 (1.002-1.036); Squamous Epithelial 0-3 HPF (0-3); Urobilinogen Normal mg/dL (Less than 2); WBC/HPF Greater than 50 HPF (0-3)
[2022-04-06 13:13] LABS: Urine Culture Reflex Yes Yes
[2022-04-06] MEDS: Atorvastatin Calcium 20 MG TAB PO SCH (22:05)
[2022-04-06] MEDS: Pregabalin 50 MG CAP PO SCH (22:06)
[2022-04-06] MEDS: rOPINIRole HCl 0.5 MG TAB PO SCH (22:07)
[2022-04-07] MEDS: Sodium Bicarbonate 150 MEQ in Dextrose 5% in Water 1,000 ML IV SCH (01:02)
[2022-04-07] MEDS: Acetaminophen 500 MG TAB PO SCH ×4 (05:04→22:46)
[2022-04-07] MEDS: traMADol HCl 50 MG TAB PO SCH ×2 (05:04→19:17)
[2022-04-07] MEDS: Levothyroxine Sodium 75 MCG TAB PO SCH (05:04)
[2022-04-07 05:52] LABS: #Eosinphils 0.3 thou/uL (0.0-0.7); #Lymphocytes 1.3 thou/uL (1.20-3.40); #Monocytes 0.4 thou/uL (0.11-0.59); #Neutrophils 3.9 thou/uL (1.40-6.50); %Basophils 0.5 % (0.0-1.0); %Eosinophils 4.9 % (0.0-10.0); %Lymphocytes 21.5 % (21.0-51.0); %Monocytes 7.4 % (0.0-10.0); %Neutrophils 65.7 % (42.0-75.0); Mean Corpuscular Hemoglobin 32.2 pg (27.0-31.0); Mean Platelet Volume 8.4 fL (7.4-10.4); Platelet Count 177 thou/uL (130-400); RBC Distribution Width 11.9 % (11.5-14.5); Red Blood Cell (RBC) Count 3.09 mill/uL (4.20-5.40); White Blood Cell (WBC) Count 5.9 thou/uL (4.8-10.8)
[2022-04-07 06:20] LABS: Anion Gap 15 mmol/L (10-20); BUN (Urea Nitrogen) 24 mg/dL (9.8-20.1); Calc. Creatinine Clearance 57 mL/min (70-130); Calcium 7.6 mg/dL (7.8-10.44); Carbon Dioxide 26 mmol/L (23-31); Chloride 103 mmol/L (98-107); Estimated GFR 85; Glucose 191 mg/dL (83-110); Magnesium 2.6 mg/dL (1.6-2.6); Phosphorus 1.8 mg/dL (2.3-4.7); Potassium 3.7 mmol/L (3.5-5.1); Sodium 140 mmol/L (136-145)
[2022-04-07] MEDS ORDERED: Potassium Phosphate 30 MMOL in Sodium Chloride 0.9% 250 ML 250 ML IVPB SCH (09:00)
[2022-04-07] MEDS: Famotidine 20 MG TAB PO SCH (10:15)
[2022-04-07] MEDS: Empagliflozin 25 MG TAB PO SCH (10:15)
[2022-04-07] MEDS: Senokot S 8.6-50 MG TAB PO SCH ×2 (10:16→22:41)
[2022-04-07] MEDS: Insulin Glargine 30 UNITS/0.3 ML VIAL SC SCH (10:17)
[2022-04-07] MEDS: Heparin 5,000 UNITS/ML VIAL SC SCH ×2 (10:20→22:42)
[2022-04-07] MEDS: Polyethylene Glycol 3350 17 GM Packet PO SCH (10:23)
[2022-04-07] MEDS: Insulin Regular 300 UNITS/3 ML VIAL SC PRN ×2 (12:07→17:41)
[2022-04-07] MEDS: Atorvastatin Calcium 20 MG TAB PO SCH (22:41)
[2022-04-07] MEDS: rOPINIRole HCl 0.5 MG TAB PO SCH (22:41)
[2022-04-07] MEDS: Pregabalin 50 MG CAP PO SCH (22:42)
[2022-04-08 05:30] LABS: #Eosinphils 0.2 thou/uL (0.0-0.7); #Lymphocytes 1.1 thou/uL (1.20-3.40); #Monocytes 0.5 thou/uL (0.11-0.59); #Neutrophils 4.1 thou/uL (1.40-6.50); %Basophils 0.4 % (0.0-1.0); %Eosinophils 3.8 % (0.0-10.0); %Lymphocytes 18.7 % (21.0-51.0); %Monocytes 8.7 % (0.0-10.0); %Neutrophils 68.5 % (42.0-75.0); Hemoglobin 9.6 g/dL (12.0-16.0); Mean Corpuscular HGB CONC 30.7 g/dL (32.0-36.0); Mean Corpuscular Hemoglobin 31.8 pg (27.0-31.0); Mean Platelet Volume 7.8 fL (7.4-10.4); Platelet Count 192 thou/uL (130-400); Red Blood Cell (RBC) Count 3.03 mill/uL (4.20-5.40)
[2022-04-08 05:54] LABS: Anion Gap 12 mmol/L (10-20); BUN (Urea Nitrogen) 12 mg/dL (9.8-20.1); Calc. Creatinine Clearance 75 mL/min (70-130); Calcium 7.9 mg/dL (7.8-10.44); Carbon Dioxide 23 mmol/L (23-31); Chloride 106 mmol/L (98-107); Estimated GFR 94; Glucose 95 mg/dL (83-110); Magnesium 2.5 mg/dL (1.6-2.6); Potassium 4.1 mmol/L (3.5-5.1); Sodium 137 mmol/L (136-145)
[2022-04-08] MEDS: Levothyroxine Sodium 75 MCG TAB PO SCH (05:59)
[2022-04-08] MEDS: Acetaminophen 500 MG TAB PO SCH ×2 (05:59→11:44)
[2022-04-08] MEDS: traMADol HCl 50 MG TAB PO SCH (05:59)
[2022-04-08] MEDS: Heparin 5,000 UNITS/ML VIAL SC SCH (09:33)
[2022-04-08] MEDS: Scopolamine 1.5 mg/72 hour Patch TD SCH (09:33)
[2022-04-08] MEDS: Empagliflozin 25 MG TAB PO SCH (09:33)
[2022-04-08] MEDS: Famotidine 20 MG TAB PO SCH (09:33)
[2022-04-08] MEDS: Senokot S 8.6-50 MG TAB PO SCH (09:34)
[2022-04-08] MEDS: Polyethylene Glycol 3350 17 GM Packet PO SCH (09:34)
[2022-04-08] MEDS: Insulin Glargine 30 UNITS/0.3 ML VIAL SC SCH (09:34)
[2022-04-08] MEDS ORDERED: PHOS-NAK 1 PKT PACK PO SCH (12:00)
[2022-04-08 12:07] VITALS: BP 147/80; TEMP 98.1
== END 2022-04-08 15:28 | DRG 481 ==
LOC: ERS 15:34 → ERHOLD 16:52 → SURG A 22:32
PROVIDERS: ADMIT Surgery; ATTEND Surgery
PROC: 0QS706Z Reposition Left Upper Femur with Intramedullary Internal Fixation Device, Open Approach (ICD-10-PCS; principal; 2022-04-04)
DX: S72.142A Displaced intertrochanteric fracture of left femur, initial encounter for closed fracture (principal); N17.9 Acute kidney failure, unspecified; Z20.822 Contact with and (suspected) exposure to COVID-19; W18.30XA Fall on same level, unspecified, initial encounter; M19.90 Unspecified osteoarthritis, unspecified site; E03.9 Hypothyroidism, unspecified; M06.9 Rheumatoid arthritis, unspecified; E11.42 Type 2 diabetes mellitus with diabetic polyneuropathy; E78.00 Pure hypercholesterolemia, unspecified; E11.65 Type 2 diabetes mellitus with hyperglycemia; E11.51 Type 2 diabetes mellitus with diabetic peripheral angiopathy without gangrene; E83.39 Other disorders of phosphorus metabolism; R33.9 Retention of urine, unspecified; Z79.899 Other long term (current) drug therapy; Z90.49 Acquired absence of other specified parts of digestive tract; Z90.89 Acquired absence of other organs; Z90.710 Acquired absence of both cervix and uterus; Z90.13 Acquired absence of bilateral breasts and nipples; Z88.1 Allergy status to other antibiotic agents; Z88.6 Allergy status to analgesic agent; Z88.8 Allergy status to other drugs, medicaments and biological substances; Z79.890 Hormone replacement therapy
CPT/HCPCS: 36415; 36416; 70450; 71045; 76000; 80048; 80053; 81001; 81003; 81015; 83036; 83735; 84100; 85025; 87086; 93005; 96374; C1713; G0390; J0360; J0690; J1644; J1815; J1885; J2270; J2370; J2405; J2550; J2704; J3490; J7030; J7050; J7070; S0028; U0002

== ENCOUNTER 2022-08-05 00:19 | Inpatient (IN) | payer MEDICARE ==
[2022-08-05 00:35] LABS: #Eosinphils 0.1 thou/uL (0.0-0.7); #Lymphocytes 1.2 thou/uL (1.20-3.40); #Monocytes 0.5 thou/uL (0.11-0.59); #Neutrophils 5.8 thou/uL (1.40-6.50); %Basophils 0.2 % (0.0-1.0); %Eosinophils 1.5 % (0.0-10.0); %Lymphocytes 15.9 % (21.0-51.0); %Monocytes 6.8 % (0.0-10.0); %Neutrophils 75.6 % (42.0-75.0); Hemoglobin 13.2 g/dL (12.0-16.0); Mean Corpuscular HGB CONC 31.3 g/dL (32.0-36.0); Mean Corpuscular Hemoglobin 30.6 pg (27.0-31.0); Mean Corpuscular Volume 97.7 fl (78.0-98.0); Mean Platelet Volume 8.1 fL (7.4-10.4); Platelet Count 279 10x3/uL (130-400); RBC Distribution Width 12.7 % (11.5-14.5); Red Blood Cell (RBC) Count 4.31 mill/uL (4.20-5.40); White Blood Cell (WBC) Count 7.7 10x3/uL (4.8-10.8)
[2022-08-05] MEDS ORDERED: Aspirin Chewable 81 MG TAB ONE (00:41)
[2022-08-05 00:42] LABS: Actual Bicarbonate (HCO3v) 22 mEq/L (22-28); Base Excess 0.8 mEq/L (-2.0 to +3.0); Calcium, Ionized (venous) 1.05 mmol/L (1.16-1.32); Chloride (VBG) 99 mmol/L (98-106); Hemoglobin (Hb) 13.9 g/dL (11.7-16.1); Potassium (VBG) 4.39 mmol/L (3.70-5.30); Sodium 129.2 mmol/L (133-146); pH (venous) 7.54 (7.32-7.43)
[2022-08-05 00:48] LABS: INR-International Normal Ratio 0.9; Prothrombin Time 11.9 sec (12.0-14.7)
[2022-08-05 00:49] LABS: PTT 26.1 sec (22.9-36.1)
[2022-08-05 00:55] LABS: ALT (SGPT) 10 U/L (8-55); AST (SGOT) 11 U/L (5-34); Albumin 3.6 g/dL (3.4-4.8); Alkaline Phosphatase 191 U/L (40-110); Anion Gap 15 mmol/L (10-20); BUN (Urea Nitrogen) 19 mg/dL (9.8-20.1); Bilirubin, Total 0.4 mg/dL (0.2-1.2); CK (CPK) 69 U/L (29-168); Calc. Creatinine Clearance 0 mL/min (70-130); Calcium 9.5 mg/dL (7.8-10.44); Carbon Dioxide 20 mmol/L (23-31); Chloride 98 mmol/L (98-107); Estimated GFR 68; Globulin 3.4 g/dL (2.4-3.5); Potassium 4.3 mmol/L (3.5-5.1); Sodium 129 mmol/L (136-145)
[2022-08-05 01:00] LABS: Glucose 548 mg/dL (83-110)
[2022-08-05 01:03] LABS: Magnesium 2.2 mg/dL (1.6-2.6); Phosphorus 3.8 mg/dL (2.3-4.7)
[2022-08-05 01:15] LABS: CKMB 3.4 ng/mL (0-6.6)
[2022-08-05] MEDS ORDERED: Labetalol HCl 100 MG/20 ML VIAL ONE (01:15)
[2022-08-05 01:17] LABS: Bacteria/HPF None Seen HPF (None Seen); Bilirubin Negative (Negative); Blood, Urine Trace (Negative); Clarity Clear (Clear); Glucose, Urine (Dipstick) Greater than 1000 mg/dL (Negative); Ketone, Urine Negative (Negative); Leukocyte 250 Leu/uL (Negative); Nitrite Negative (Negative); Protein, Urine (Dipstick) 50 mg/dL (Neg-Trace); RBC/HPF 0-3 HPF (0-3); Squamous Epithelial 0-3 HPF (0-3); Urobilinogen Normal mg/dL (Less than 2); WBC/HPF 21-50 HPF (0-3)
[2022-08-05] MEDS ORDERED: Insulin Regular 300 UNITS/3 ML VIAL ONE (02:34)
[2022-08-05] MEDS ORDERED: Ondansetron PF 4 MG/2 ML Vial IVP PRN (03:00)
[2022-08-05] MEDS ORDERED: Ondansetron ODT 4 MG TAB SL PRN (03:00)
[2022-08-05] MEDS ORDERED: Acetaminophen 325 MG TAB PO PRN (03:00)
[2022-08-05] MEDS: Lactated Ringer's 1,000 ML IV SCH ×2 (04:00→12:00)
[2022-08-05] MEDS ORDERED: Acetaminophen 325 MG TAB PO SCH (10:00)
[2022-08-05] MEDS ORDERED: Acetaminophen/Codeine 30-300mg Tablet PO PRN (10:03)
[2022-08-05] MEDS ORDERED: Lorazepam 2 MG/ML VIAL SLOW IVP PRN (11:12)
[2022-08-05] MEDS ORDERED: Dextrose 50% Abboject 50 ML SYRINGE IVP PRN (11:15)
[2022-08-05] MEDS ORDERED: Dextrose 5% in Water 1,000 ML IV PRN (11:15)
[2022-08-05] MEDS ORDERED: Insulin Regular 300 UNITS/3 ML VIAL SC SCH (11:30)
[2022-08-05 11:54] LABS: Glucose 238 mg/dL (83-110)
[2022-08-05 16:48] LABS: SARS-CoV-2 NAA Rapid Test Not Detected (NotDetected)
[2022-08-05 16:49] VITALS: BMI 20.5
[2022-08-05] MEDS: Gabapentin 300 MG CAP PO SCH ×2 (17:36→20:10)
[2022-08-05] MEDS: Acetaminophen 325 MG TAB PO SCH ×2 (17:37→20:11)
[2022-08-05] MEDS: rOPINIRole HCl 1 MG TAB PO SCH (18:35)
[2022-08-05] MEDS ORDERED: cloNIDine 0.1 MG TAB PO SCH (19:15)
[2022-08-06] MEDS: Insulin Regular 300 UNITS/3 ML VIAL SC PRN ×2 (00:57→11:19)
[2022-08-06 05:49] LABS: Hemoglobin A1c 12.5 % (4.0-6.0)
[2022-08-06] MEDS: Levothyroxine Sodium 75 MCG TAB PO SCH (06:07)
[2022-08-06] MEDS ORDERED: Lorazepam 2 MG/ML VIAL SLOW IVP SCH (08:00)
[2022-08-06] MEDS ORDERED: Insulin Regular 300 UNITS/3 ML VIAL SC PRN (08:00)
[2022-08-06] MEDS ORDERED: FLU VACC QS2022-23(65YR UP)/PF 240 MCG/0.7 ML SYRINGE IM ONE (09:00)
[2022-08-06] MEDS ORDERED: Empagliflozin 10 MG TAB PO SCH (09:00)
[2022-08-06] MEDS: Acetaminophen 325 MG TAB PO SCH ×3 (09:26→22:03)
[2022-08-06] MEDS: Gabapentin 300 MG CAP PO SCH ×3 (09:27→22:01)
[2022-08-06] MEDS: cloNIDine 0.1 MG TAB PO SCH ×2 (09:28→22:02)
[2022-08-06] MEDS: Empagliflozin 25 MG TAB PO SCH (09:28)
[2022-08-06] MEDS: Insulin Glargine 30 UNITS/0.3 ML VIAL SC SCH ×2 (09:29→22:06)
[2022-08-06] MEDS ORDERED: Magnevist 469MG/ML 20 ML VIAL ONE (11:24)
[2022-08-06] MEDS: rOPINIRole HCl 1 MG TAB PO SCH (18:03)
[2022-08-06] MEDS ORDERED: Sulfameth/Trimethoprim DS 800-160mg TAB PO SCH (21:45)
[2022-08-06] MEDS ORDERED: Rosuvastatin 20 MG TAB PO SCH (21:45)
[2022-08-07 05:24] LABS: #Eosinphils 0.2 thou/uL (0.0-0.7); #Lymphocytes 1.5 thou/uL (1.20-3.40); #Monocytes 0.5 thou/uL (0.11-0.59); #Neutrophils 4.7 thou/uL (1.40-6.50); %Basophils 0.3 % (0.0-1.0); %Eosinophils 3.3 % (0.0-10.0); %Lymphocytes 21.8 % (21.0-51.0); %Monocytes 6.6 % (0.0-10.0); Hemoglobin 12.4 g/dL (12.0-16.0); Mean Corpuscular HGB CONC 32.1 g/dL (32.0-36.0); Mean Corpuscular Hemoglobin 30.9 pg (27.0-31.0); Mean Corpuscular Volume 96.3 fl (78.0-98.0); Mean Platelet Volume 8.1 fL (7.4-10.4); Platelet Count 272 10x3/uL (130-400); RBC Distribution Width 12.6 % (11.5-14.5); Red Blood Cell (RBC) Count 4.02 mill/uL (4.20-5.40); White Blood Cell (WBC) Count 6.9 10x3/uL (4.8-10.8)
[2022-08-07 05:40] LABS: ALT (SGPT) Less than 7 U/L (8-55); AST (SGOT) 9 U/L (5-34); Albumin 3.1 g/dL (3.4-4.8); Alkaline Phosphatase 115 U/L (40-110); Anion Gap 10 mmol/L (10-20); BUN (Urea Nitrogen) 16 mg/dL (9.8-20.1); Bilirubin, Total 0.3 mg/dL (0.2-1.2); Calc. Creatinine Clearance 56 mL/min (70-130); Calcium 9.1 mg/dL (7.8-10.44); Carbon Dioxide 27 mmol/L (23-31); Chloride 105 mmol/L (98-107); Estimated GFR 90; Globulin 2.9 g/dL (2.4-3.5); Glucose 127 mg/dL (83-110); Potassium 3.8 mmol/L (3.5-5.1); Sodium 138 mmol/L (136-145)
[2022-08-07] MEDS: Levothyroxine Sodium 75 MCG TAB PO SCH (06:02)
[2022-08-07] MEDS: Gabapentin 300 MG CAP PO SCH ×3 (09:50→19:56)
[2022-08-07] MEDS: Acetaminophen 325 MG TAB PO SCH ×3 (09:50→19:55)
[2022-08-07] MEDS: Sulfameth/Trimethoprim DS 800-160mg TAB PO SCH ×2 (09:51→19:56)
[2022-08-07] MEDS: cloNIDine 0.1 MG TAB PO SCH ×2 (09:51→19:57)
[2022-08-07] MEDS: Insulin Glargine 30 UNITS/0.3 ML VIAL SC SCH ×2 (09:51→19:54)
[2022-08-07] MEDS: Empagliflozin 25 MG TAB PO SCH (09:52)
[2022-08-07] MEDS: rOPINIRole HCl 1 MG TAB PO SCH (19:55)
[2022-08-07] MEDS ORDERED: Rosuvastatin 20 MG TAB PO SCH (21:00)
[2022-08-08] MEDS: Levothyroxine Sodium 75 MCG TAB PO SCH (05:40)
[2022-08-08] MEDS ORDERED: Gabapentin 100 MG CAP PO SCH (09:00)
[2022-08-08] MEDS: Insulin Glargine 30 UNITS/0.3 ML VIAL SC SCH (10:08)
[2022-08-08] MEDS: Empagliflozin 25 MG TAB PO SCH (10:09)
[2022-08-08] MEDS: Sulfameth/Trimethoprim DS 800-160mg TAB PO SCH (10:09)
[2022-08-08] MEDS: cloNIDine 0.1 MG TAB PO SCH (10:09)
[2022-08-08] MEDS: Acetaminophen 325 MG TAB PO SCH ×2 (10:10→13:44)
[2022-08-08 17:25] VITALS: BP 169/76; TEMP 98.2
== END 2022-08-08 18:30 | disposition home or self-care (01) | DRG 69 ==
LOC: ERS 00:19 → ERHOLD 02:42 → NEURO 16:28
PROVIDERS: ADMIT Specialist; ATTEND Specialist
DX: G45.9 Transient cerebral ischemic attack, unspecified (principal); I16.9 Hypertensive crisis, unspecified; R47.01 Aphasia; Z20.822 Contact with and (suspected) exposure to COVID-19; E11.65 Type 2 diabetes mellitus with hyperglycemia; M06.9 Rheumatoid arthritis, unspecified; E03.9 Hypothyroidism, unspecified; E78.5 Hyperlipidemia, unspecified; F41.9 Anxiety disorder, unspecified; G25.81 Restless legs syndrome; K21.9 Gastro-esophageal reflux disease without esophagitis; E11.51 Type 2 diabetes mellitus with diabetic peripheral angiopathy without gangrene; Z90.49 Acquired absence of other specified parts of digestive tract; Z90.710 Acquired absence of both cervix and uterus; Z90.09 Acquired absence of other part of head and neck; Z88.8 Allergy status to other drugs, medicaments and biological substances; Z88.1 Allergy status to other antibiotic agents; Z88.5 Allergy status to narcotic agent; Z79.890 Hormone replacement therapy; Z79.84 Long term (current) use of oral hypoglycemic drugs; Z79.899 Other long term (current) drug therapy
CPT/HCPCS: 36415; 36416; 70450; 70553; 71045; 80053; 80061; 81003; 81015; 82010; 82550; 82553; 82805; 83036; 83735; 84100; 84443; 84484; 85025; 85610; 85730; 90471; 90732; 93306; 93880; A9579; G0009; J1815; J2060; J7120; U0002

== ENCOUNTER 2022-11-07 04:27 | Inpatient (IN) | payer MEDICARE ==
[2022-11-07] MEDS ORDERED: Ondansetron PF 4 MG/2 ML Vial ONE (04:54)
[2022-11-07] MEDS ORDERED: Pantoprazole 40 MG VIAL ONE (04:55)
[2022-11-07 05:26] LABS: Bacteria/HPF None Seen HPF (None Seen); Bilirubin Negative (Negative); Blood, Urine Negative (Negative); Clarity Clear (Clear); Glucose, Urine (Dipstick) Greater than 1000 mg/dL (Negative); Ketone, Urine Negative (Negative); Leukocyte Negative Leu/uL (Negative); Nitrite Negative (Negative); Protein, Urine (Dipstick) 30 mg/dL (Neg-Trace); RBC/HPF 0-3 HPF (0-3); Specific Gravity, Urine 1.029 (1.002-1.036); Squamous Epithelial None Seen HPF (0-3); Urobilinogen Normal mg/dL (Less than 2); WBC/HPF None Seen HPF (0-3); pH, Urine 6.5 (5.0-9.0)
[2022-11-07 05:26] LABS: #Lymphocytes 0.7 thou/uL (1.20-3.40); #Monocytes 0.4 thou/uL (0.11-0.59); #Neutrophils 11.9 thou/uL (1.40-6.50); %Eosinophils 0.2 % (0.0-10.0); %Monocytes 3.1 % (0.0-10.0); %Neutrophils 91.6 % (42.0-75.0); Hemoglobin 13.7 g/dL (12.0-16.0); Mean Corpuscular HGB CONC 31.7 g/dL (32.0-36.0); Mean Corpuscular Hemoglobin 31.8 pg (27.0-31.0); Mean Platelet Volume 8.9 fL (7.4-10.4); Platelet Count 272 10x3/uL (130-400); RBC Distribution Width 12.5 % (11.5-14.5); Red Blood Cell (RBC) Count 4.32 mill/uL (4.20-5.40); White Blood Cell (WBC) Count 12.9 10x3/uL (4.8-10.8)
[2022-11-07 05:29] LABS: Actual Bicarbonate (HCO3v) 25 mEq/L (22-28); Base Excess -1.5 mEq/L (-2.0 to +3.0); Calcium, Ionized (venous) 1.24 mmol/L (1.16-1.32); Chloride (VBG) 95 mmol/L (98-106); Hemoglobin (Hb) 14.2 g/dL (11.7-16.1); Potassium (VBG) 4.81 mmol/L (3.70-5.30); Sodium 135.9 mmol/L (133-146); pH (venous) 7.33 (7.32-7.43)
[2022-11-07 05:38] LABS: INR-International Normal Ratio 0.9; Prothrombin Time 12.2 sec (12.0-14.7)
[2022-11-07 05:39] LABS: PTT 21.3 sec (22.9-36.1)
[2022-11-07 05:51] LABS: ALT (SGPT) 13 U/L (8-55); AST (SGOT) 16 U/L (5-34); Albumin 4.3 g/dL (3.4-4.8); Alkaline Phosphatase 271 U/L (40-110); Anion Gap 19 mmol/L (10-20); BUN (Urea Nitrogen) 31 mg/dL (9.8-20.1); Bilirubin, Total 0.6 mg/dL (0.2-1.2); Calc. Creatinine Clearance 0 mL/min (70-130); Calcium 10.4 mg/dL (7.8-10.44); Carbon Dioxide 22 mmol/L (23-31); Chloride 96 mmol/L (98-107); Estimated GFR 39; Globulin 3.7 g/dL (2.4-3.5); Lipase 53 U/L (8-78); Magnesium 2.5 mg/dL (1.6-2.6); Potassium 4.7 mmol/L (3.5-5.1); Sodium 132 mmol/L (136-145)
[2022-11-07] MEDS ORDERED: Pantoprazole 80 MG in Sodium Chloride 0.9% 100 ML IVPB SCH (06:00)
[2022-11-07 06:05] LABS: Glucose 1015 mg/dL (83-110)
[2022-11-07] MEDS ORDERED: LORazepam 2 MG/ML SYR.(CARPUJECT) ONE (06:20)
[2022-11-07] MEDS ORDERED: INSULIN REGULAR IN 0.9 % NACL 100 UNIT/100 ML BAG ONE (06:59)
[2022-11-07 09:12] LABS: Glucose 715 mg/dL (83-110)
[2022-11-07] MEDS ORDERED: NS 0.9% w/ 20 MEQ KCL 1,000 ML ONE (10:19)
[2022-11-07] MEDS ORDERED: Acetaminophen 650 MG Suppository PR PRN (12:09)
[2022-11-07] MEDS ORDERED: Ondansetron PF 4 MG/2 ML Vial IVP PRN (12:09)
[2022-11-07 12:12] LABS: SARS-CoV-2 NAA Rapid Test Not Detected (NotDetected)
[2022-11-07 12:44] LABS: Hemoglobin A1c 13.3 % (4.0-6.0)
[2022-11-07] MEDS ORDERED: Dextrose 50% Abboject 50 ML SYRINGE SLOW IVP PRN (13:11)
[2022-11-07] MEDS ORDERED: Dextrose 5% in Water 1,000 ML IV PRN (13:15)
[2022-11-07] MEDS ORDERED: NS 0.9% w/ 20 MEQ KCL 1,000 ML/1,000 ML BAG IV PRN ×2 (13:15)
[2022-11-07] MEDS ORDERED: HUMULIN R 100 UNITS in Sodium Chloride 0.9% 100 ML IVPB SCH (13:15)
[2022-11-07] MEDS ORDERED: Sodium Chloride 0.9% 1,000 ML IV PRN ×4 (13:15)
[2022-11-07] MEDS ORDERED: Electrolyte Replacement Protocol FS PRN (13:15)
[2022-11-07] MEDS ORDERED: Dextrose 5 %-0.45 % NaCl 1,000 ML IV PRN (13:15)
[2022-11-07 13:17] LABS: Anion Gap 14 mmol/L (10-20); BUN (Urea Nitrogen) 20 mg/dL (9.8-20.1); Calc. Creatinine Clearance 18 mL/min (70-130); Calcium 9.5 mg/dL (7.8-10.44); Carbon Dioxide 24 mmol/L (23-31); Chloride 113 mmol/L (98-107); Estimated GFR 71; Glucose 284 mg/dL (83-110); Potassium 4.4 mmol/L (3.5-5.1); Sodium 147 mmol/L (136-145)
[2022-11-07] MEDS ORDERED: Iopamidol-370 76% 500 ML 1 ML ONE (13:42)
[2022-11-07] MEDS: D5 1/2 NS w/20 mEq KCL 1,000 ML IV PRN ×2 (13:43→21:32)
[2022-11-07] MEDS ORDERED: Lorazepam 2 MG/ML VIAL SLOW IVP PRN (14:00)
[2022-11-07] MEDS ORDERED: hydrALAZINE 20 MG/ML VIAL SLOW IVP PRN (14:01)
[2022-11-07 16:00] LABS: Anion Gap 14 mmol/L (10-20); BUN (Urea Nitrogen) 18 mg/dL (9.8-20.1); Calc. Creatinine Clearance 43 mL/min (70-130); Calcium 9.5 mg/dL (7.8-10.44); Carbon Dioxide 24 mmol/L (23-31); Chloride 113 mmol/L (98-107); Estimated GFR 78; Glucose 252 mg/dL (83-110); Potassium 3.9 mmol/L (3.5-5.1); Sodium 147 mmol/L (136-145)
[2022-11-07] MEDS ORDERED: Pantoprazole 80 MG, Admixture Fee 1 EACH in Sodium Chloride 0.9% 100 ML IVPB SCH (18:00)
[2022-11-07] MEDS ORDERED: Famotidine/PF 20 mg/2ml Vial SLOW IVP SCH (21:00)
[2022-11-07] MEDS ORDERED: Famotidine 20 MG TAB PO SCH (21:00)
[2022-11-08 04:20] LABS: #Eosinphils 0.2 thou/uL (0.0-0.7); #Monocytes 0.8 thou/uL (0.11-0.59); #Neutrophils 9.9 thou/uL (1.40-6.50); %Basophils 0.3 % (0.0-1.0); %Eosinophils 1.6 % (0.0-10.0); %Lymphocytes 15.5 % (21.0-51.0); %Monocytes 6.1 % (0.0-10.0); %Neutrophils 76.5 % (42.0-75.0); Hemoglobin 11.7 g/dL (12.0-16.0); Mean Corpuscular HGB CONC 32.4 g/dL (32.0-36.0); Mean Corpuscular Volume 98.9 fl (78.0-98.0); Mean Platelet Volume 8.4 fL (7.4-10.4); Platelet Count 224 10x3/uL (130-400); RBC Distribution Width 12.8 % (11.5-14.5); Red Blood Cell (RBC) Count 3.64 mill/uL (4.20-5.40); White Blood Cell (WBC) Count 12.9 10x3/uL (4.8-10.8)
[2022-11-08 04:37] LABS: ALT (SGPT) 8 U/L (8-55); AST (SGOT) 14 U/L (5-34); Albumin 3.3 g/dL (3.4-4.8); Alkaline Phosphatase 129 U/L (40-110); Anion Gap 5 mmol/L (10-20); BUN (Urea Nitrogen) 11 mg/dL (9.8-20.1); Bilirubin, Total 0.5 mg/dL (0.2-1.2); Calc. Creatinine Clearance 49 mL/min (70-130); Calcium 8.9 mg/dL (7.8-10.44); Carbon Dioxide 29 mmol/L (23-31); Chloride 114 mmol/L (98-107); Estimated GFR 89; Globulin 2.7 g/dL (2.4-3.5); Glucose 194 mg/dL (83-110); Potassium 3.4 mmol/L (3.5-5.1); Sodium 145 mmol/L (136-145)
[2022-11-08] MEDS: D5 1/2 NS w/20 mEq KCL 1,000 ML IV PRN (05:38)
[2022-11-08] MEDS: Potassium Chloride 20 MEQ in Premix Bag 1 BAG IVPB SCH ×2 (07:43→10:25)
[2022-11-08] MEDS ORDERED: Acetaminophen 325 MG TAB PO PRN (09:42)
[2022-11-08] MEDS ORDERED: cloNIDine 0.1 MG TAB PO PRN (09:59)
[2022-11-08] MEDS ORDERED: Empagliflozin 25 MG TAB PO SCH (10:00)
[2022-11-08] MEDS ORDERED: Famotidine 20 MG TAB PO SCH (10:00)
[2022-11-08] MEDS: HumaLOG 300 UNITS/3 ML VIAL SC SCH ×3 (12:35→21:38)
[2022-11-08] MEDS: Mupirocin 2% Ointment 22 GM Tube TOP SCH (17:50)
[2022-11-08] MEDS: Rosuvastatin 20 MG TAB PO SCH (21:37)
[2022-11-08] MEDS: cloNIDine 0.1 MG TAB PO SCH (21:37)
[2022-11-08] MEDS: rOPINIRole HCl 0.5 MG TAB PO SCH (21:37)
[2022-11-08] MEDS: Famotidine 20 MG TAB PO SCH (21:38)
[2022-11-08] MEDS: Insulin Glargine 30 UNITS/0.3 ML VIAL SC SCH (21:38)
[2022-11-09 04:12] LABS: #Eosinphils 0.4 thou/uL (0.0-0.7); #Lymphocytes 1.6 thou/uL (1.20-3.40); #Monocytes 0.5 thou/uL (0.11-0.59); #Neutrophils 8.2 thou/uL (1.40-6.50); %Basophils 0.1 % (0.0-1.0); %Eosinophils 3.7 % (0.0-10.0); %Lymphocytes 14.6 % (21.0-51.0); %Monocytes 4.6 % (0.0-10.0); Hemoglobin 11.2 g/dL (12.0-16.0); Mean Corpuscular HGB CONC 32.1 g/dL (32.0-36.0); Mean Corpuscular Hemoglobin 31.8 pg (27.0-31.0); Mean Corpuscular Volume 98.9 fl (78.0-98.0); Mean Platelet Volume 8.5 fL (7.4-10.4); Platelet Count 209 10x3/uL (130-400); RBC Distribution Width 12.5 % (11.5-14.5); Red Blood Cell (RBC) Count 3.51 mill/uL (4.20-5.40); White Blood Cell (WBC) Count 10.7 10x3/uL (4.8-10.8)
[2022-11-09 04:32] LABS: Anion Gap 10 mmol/L (10-20); BUN (Urea Nitrogen) 12 mg/dL (9.8-20.1); Calc. Creatinine Clearance 49 mL/min (70-130); Calcium 9.3 mg/dL (7.8-10.44); Carbon Dioxide 25 mmol/L (23-31); Chloride 106 mmol/L (98-107); Estimated GFR 89; Glucose 169 mg/dL (83-110); Potassium 3.8 mmol/L (3.5-5.1); Sodium 137 mmol/L (136-145)
[2022-11-09] MEDS: Levothyroxine Sodium 75 MCG TAB PO SCH (06:45)
[2022-11-09] MEDS: Insulin Glargine 30 UNITS/0.3 ML VIAL SC SCH ×2 (09:05→20:44)
[2022-11-09] MEDS: Mupirocin 2% Ointment 22 GM Tube TOP SCH (09:06)
[2022-11-09] MEDS: rOPINIRole HCl 0.5 MG TAB PO SCH ×2 (09:07→20:44)
[2022-11-09] MEDS: Empagliflozin 25 MG TAB PO SCH (09:07)
[2022-11-09] MEDS: Famotidine 20 MG TAB PO SCH ×2 (09:07→20:45)
[2022-11-09] MEDS: cloNIDine 0.1 MG TAB PO SCH ×2 (09:10→20:45)
[2022-11-09] MEDS: HumaLOG 300 UNITS/3 ML VIAL SC SCH ×4 (09:13→20:43)
[2022-11-09 12:10] LABS: #Eosinphils 0.4 thou/uL (0.0-0.7); #Lymphocytes 1.1 thou/uL (1.20-3.40); #Monocytes 0.6 thou/uL (0.11-0.59); #Neutrophils 8.4 thou/uL (1.40-6.50); %Basophils 0.3 % (0.0-1.0); %Eosinophils 3.8 % (0.0-10.0); %Lymphocytes 10.7 % (21.0-51.0); %Monocytes 5.2 % (0.0-10.0); Hemoglobin 11.3 g/dL (12.0-16.0); Mean Corpuscular Hemoglobin 31.7 pg (27.0-31.0); Mean Corpuscular Volume 99.1 fl (78.0-98.0); Mean Platelet Volume 8.7 fL (7.4-10.4); Platelet Count 204 10x3/uL (130-400); RBC Distribution Width 12.5 % (11.5-14.5); Red Blood Cell (RBC) Count 3.57 mill/uL (4.20-5.40); White Blood Cell (WBC) Count 10.5 10x3/uL (4.8-10.8)
[2022-11-09] MEDS: Rosuvastatin 20 MG TAB PO SCH (20:44)
[2022-11-10 04:24] VITALS: BMI 18.0
[2022-11-10] MEDS: Levothyroxine Sodium 75 MCG TAB PO SCH (05:17)
[2022-11-10 07:07] LABS: Anion Gap 11 mmol/L (10-20); BUN (Urea Nitrogen) 16 mg/dL (9.8-20.1); Calc. Creatinine Clearance 46 mL/min (70-130); Calcium 9.5 mg/dL (7.8-10.44); Carbon Dioxide 22 mmol/L (23-31); Chloride 107 mmol/L (98-107); Estimated GFR 84; Glucose 125 mg/dL (83-110); Potassium 4.2 mmol/L (3.5-5.1); Sodium 136 mmol/L (136-145)
[2022-11-10] MEDS: HumaLOG 300 UNITS/3 ML VIAL SC SCH ×4 (09:21→20:04)
[2022-11-10] MEDS: Insulin Glargine 30 UNITS/0.3 ML VIAL SC SCH ×2 (09:25→20:01)
[2022-11-10] MEDS: cloNIDine 0.1 MG TAB PO SCH ×2 (09:27→20:08)
[2022-11-10] MEDS: rOPINIRole HCl 0.5 MG TAB PO SCH ×2 (09:27→20:07)
[2022-11-10] MEDS: Famotidine 20 MG TAB PO SCH ×2 (09:27→20:08)
[2022-11-10] MEDS: Empagliflozin 25 MG TAB PO SCH (09:28)
[2022-11-10] MEDS: Mupirocin 2% Ointment 22 GM Tube TOP SCH (11:23)
[2022-11-10] MEDS: Rosuvastatin 20 MG TAB PO SCH (20:07)
[2022-11-11] MEDS: Levothyroxine Sodium 75 MCG TAB PO SCH (05:12)
[2022-11-11] MEDS: HumaLOG 300 UNITS/3 ML VIAL SC SCH ×4 (08:49→21:06)
[2022-11-11] MEDS: Famotidine 20 MG TAB PO SCH ×2 (09:10→21:05)
[2022-11-11] MEDS: cloNIDine 0.1 MG TAB PO SCH ×2 (09:13→21:06)
[2022-11-11] MEDS: rOPINIRole HCl 0.5 MG TAB PO SCH ×2 (09:14→21:05)
[2022-11-11] MEDS: Empagliflozin 25 MG TAB PO SCH (09:14)
[2022-11-11] MEDS: Insulin Glargine 30 UNITS/0.3 ML VIAL SC SCH ×2 (09:19→21:05)
[2022-11-11] MEDS: Mupirocin 2% Ointment 22 GM Tube TOP SCH (09:20)
[2022-11-11] MEDS: Rosuvastatin 20 MG TAB PO SCH (21:05)
[2022-11-12] MEDS: Levothyroxine Sodium 75 MCG TAB PO SCH (05:55)
[2022-11-12] MEDS ORDERED: Insulin Glargine 30 UNITS/0.3 ML VIAL SC SCH (09:00)
[2022-11-12] MEDS: cloNIDine 0.1 MG TAB PO SCH ×2 (09:41→19:42)
[2022-11-12] MEDS: rOPINIRole HCl 0.5 MG TAB PO SCH ×2 (09:41→19:42)
[2022-11-12] MEDS: Empagliflozin 25 MG TAB PO SCH (09:41)
[2022-11-12] MEDS: Famotidine 20 MG TAB PO SCH ×2 (09:41→19:42)
[2022-11-12] MEDS: HumaLOG 300 UNITS/3 ML VIAL SC SCH ×4 (09:42→19:44)
[2022-11-12] MEDS: Mupirocin 2% Ointment 22 GM Tube TOP SCH (09:43)
[2022-11-12] MEDS: Rosuvastatin 20 MG TAB PO SCH (19:42)
[2022-11-12] MEDS: Insulin Glargine 30 UNITS/0.3 ML VIAL SC SCH (19:43)
[2022-11-12 19:50] VITALS: BP 153/67; TEMP 98.5
== END 2022-11-12 22:35 | DRG 638 ==
LOC: ERS 04:27 → IMCU/EMU 11:39 → T4-B 11-09 15:13
PROVIDERS: ADMIT Specialist; ATTEND Specialist
DX: E11.00 Type 2 diabetes mellitus with hyperosmolarity without nonketotic hyperglycemic-hyperosmolar coma (NKHHC) (principal); E44.0 Moderate protein-calorie malnutrition; Z68.1 Body mass index [BMI] 19.9 or less, adult; L02.31 Cutaneous abscess of buttock; R33.9 Retention of urine, unspecified; M06.9 Rheumatoid arthritis, unspecified; E78.5 Hyperlipidemia, unspecified; E03.9 Hypothyroidism, unspecified; E11.51 Type 2 diabetes mellitus with diabetic peripheral angiopathy without gangrene; E11.40 Type 2 diabetes mellitus with diabetic neuropathy, unspecified; F41.9 Anxiety disorder, unspecified; K21.9 Gastro-esophageal reflux disease without esophagitis; G25.81 Restless legs syndrome; Z20.822 Contact with and (suspected) exposure to COVID-19; N32.89 Other specified disorders of bladder; Z98.890 Other specified postprocedural states; Z90.49 Acquired absence of other specified parts of digestive tract; Z90.710 Acquired absence of both cervix and uterus; Z88.5 Allergy status to narcotic agent; Z88.8 Allergy status to other drugs, medicaments and biological substances; Z78.1 Physical restraint status; Z79.82 Long term (current) use of aspirin; Z79.4 Long term (current) use of insulin; Z79.899 Other long term (current) drug therapy
CPT/HCPCS: 36415; 36416; 51702; 70450; 71045; 74177; 80048; 80053; 81003; 81015; 82010; 82140; 82274; 82805; 83036; 83605; 83690; 83735; 85025; 85610; 85730; 86850; 86900; 86901; 93005; 96361; 96365; 96366; 96368; 96375; 97139; C9113; J0360; J1650; J1815; J2060; J2405; J3480; J3490; Q9967; S0028